=== PATIENT | female | born 1970 | race African-American/Black ===

== ENCOUNTER 2023-03-16 13:27 | Emergency (ER) | payer OTHER, SELFPAY ==
[2023-03-16 13:42] VITALS: BP 129/84; PULSE 80; RESP 18; TEMP 37.2; O2SAT 100
--- NOTE | 2023-03-16 14:32 | ED.EXTPRO ---
HPI - Extremity Problem General Chief complaint: Extremity Injury, Lower Stated complaint: problem with toes left foot Time Seen by Provider: 03/16/23 14:23 Source: patient and RN notes reviewed Mode of arrival: ambulatory Limitations: no limitations History of Present Illness HPI Narrative: Patient presents today complaining of left foot and toe pain x3 years. States now her toes are stiff and the pain is extending proximally into her foot. States the pain is constant and started after she had COVID. She has been to a nursing secretary and physical therapist and states they were not helpful. She has been taking ibuprofen without much relief. Currently rates her pain 06/02. States she is unable to wear shoes due to pain. Related Data Home Medications Medication Instructions Recorded Confirmed amlodipine 10 mg tablet mg 03/16/23 atorvastatin 40 mg tablet mg 03/16/23 dulaglutide 3 mg/0.5 mL mg subcut 03/16/23 subcutaneous pen injector (Trulicity) insulin glargine 100 unit/mL (3 unit subcut 03/16/23 mL) subcutaneous pen (Basaglar KwikPen U-100 Insulin) irbesartan 150 tablet 03/16/23 mg-hydrochlorothiazide 12.5 mg tablet Allergies Allergy/AdvReac Type Severity Reaction Status Date / Time No Known Allergies Allergy Verified 03/16/23 13:45 Review of Systems Review of Systems: CONSTITUTIONAL: Denies body aches, fever, chills, or sweats. EYES: Denies visual changes, redness, or discharge. ENT: Denies rhinorrhea, congestion, sore throat, or otalgia. CARDIOVASCULAR: Denies chest pain, palpitations, or edema. RESPIRATORY: Denies cough or dyspnea. GASTROINTESTINAL: Denies abdominal pain, nausea, vomiting, or diarrhea. GENITOURINARY: Denies dysuria or hematuria. SKIN: Denies rash, itching, or wounds. MUSCULOSKELETAL: Denies back pain, joint pain, or myalgia.+ left foot pain NEUROLOGIC: Denies headache, numbness, tingling, or weakness. PSYCH: Denies depression or anxiety. COUNT INCLUDES THE [facility] Past Medical History Medical History (Updated 03/16/23 @ 14:36 by Kenna Coats, ONCOLOGY COORDINATOR, ) Diabetes Hypertension Comments At time of signature, I have reviewed and agree with nursing past medical, surgical, social and family history unless otherwise noted. Please see nursing chart for further information. There is no relevant family history pertinent to the presenting complaint Exam Narrative: GENERAL: Well-appearing, well-nourished, and in no acute distress. HEAD: Normocephalic, atraumatic. EYES: EOMI. No redness or drainage. Conjunctivae normal. ENT: Mucous membranes pink and moist. NECK: Normal AROM. CHEST: No respiratory distress. EXTREMITIES: Left foot: Tenderness to the toes. Patient does have decreased range of motion to the toes with flexion and extension. No edema noted to the foot or toes. Distal sensation intact. Capillary refill normal. Pedal pulse normal. Color normal. SKIN: Warm, dry, no rash. Capillary refill normal. Normal skin turgor. NEURO: No focal deficits. Alert and oriented x3. Gait steady. PSYCH: Normal affect. No signs of depression or anxiety. Course Course Level of Care: Express Care Visit Vital Signs Vital signs: Vital Signs Temperature 98.9 F 03/16/23 13:42 Pulse Rate 80 03/16/23 13:42 Respiratory Rate 18 03/16/23 13:42 Blood Pressure 129/84 03/16/23 13:42 Pulse Oximetry 100 03/16/23 13:42 Oxygen Delivery Room Air 03/16/23 13:42 Temperature 98.9 F 03/16/23 13:42 Pulse Rate 80 03/16/23 13:42 Respiratory Rate 18 03/16/23 13:42 Blood Pressure 129/84 03/16/23 13:42 Pulse Oximetry 100 03/16/23 13:42 Oxygen Delivery Room Air 03/16/23 13:42 Reviewed. Pt has been instructed to follow up with her PCP regarding her elevated blood pressure today. MDM - Extremity (Nontraumatic) MDM Narrative Medical decision making narrative: Unclear etiology of patient's symptoms. Offered prescription for diclofenac. Patient acc
== END 2023-03-16 14:40 | disposition home or self-care (01) ==
PROVIDERS: Emergency Provider Nurse Practitioner
DX: M79.672 Pain in left foot (principal); E11.9 Type 2 diabetes mellitus without complications; I10 Essential (primary) hypertension
CPT/HCPCS: 99203; G0463

== ENCOUNTER 2023-03-22 16:28 | Emergency (ER) | payer OTHER, SELFPAY ==
[2023-03-22 16:31] VITALS: BP 141/74; PULSE 99; RESP 18; TEMP 36.6; O2SAT 100
--- NOTE | 2023-03-22 17:33 | ED.GENADULT ---
HPI - General Adult General Chief complaint: Unspecified Stated complaint: toes swollen Time Seen by Provider: 03/22/23 17:04 Source: patient Mode of arrival: ambulatory Limitations: no limitations History of Present Illness HPI narrative: This is a 52-year-old female with PMH of HTN, insulin-dependent diabetes who presents to the ED with chief complaint of bilateral lower extremity pain ongoing for 2 years and worse in the past week. Patient states that the pain is a burning/tingling/aching. States the pain is worst in the toes. It is worse at nighttime. Nothing seems to make it better. It is intermittent in nature. Occasionally radiates into the ankles and lower calves. Triage note mentions swelling but she denies this to me. Denies redness, lesions, skin breaks. Denies abdominal pain, nausea, vomiting. Patient states that she was recently referred to a diabetic doctor for insulin management. States her last A1c was around 11-12. She has not talked to her primary about this problem yet. Related Data Home Medications Medication Instructions Recorded Confirmed amlodipine 10 mg tablet mg 03/16/23 atorvastatin 40 mg tablet mg 03/16/23 dulaglutide 3 mg/0.5 mL mg subcut 03/16/23 subcutaneous pen injector (Trulicity) insulin glargine 100 unit/mL (3 unit subcut 03/16/23 mL) subcutaneous pen (Basaglar KwikPen U-100 Insulin) irbesartan 150 tablet 03/16/23 mg-hydrochlorothiazide 12.5 mg tablet Allergies Allergy/AdvReac Type Severity Reaction Status Date / Time No Known Allergies Allergy Verified 03/16/23 13:45 [facility] Past Medical History Medical History (Updated 03/22/23 @ 17:39 by Nj Pollack PA-C) Diabetes Hypertension Exam Narrative: GENERAL: Well-appearing, well-nourished, and in no acute distress. HEAD: Normocephalic, atraumatic. EYES: PERRLA and EOMI. ENT: Nares clear, no rhinorrhea or epistaxis. Mucous membranes moist. Oropharynx without tonsillar hypertrophy exudate or other lesions. NECK: Supple. No adenopathy or masses. CHEST: No respiratory distress. Clear to auscultation. No wheezes rales or rhonchi HEART: Regular rate and rhythm. No murmur heard. Normal peripheral pulses. ABDOMEN: Soft, nontender, nondistended, normal active bowel sounds. MSK: Mild tenderness to the toes bilaterally. Normal range of motion. No swelling. No edema. Full sensation throughout the bilateral feet. Subjective tingling reported with palpation. Full strength throughout the feet bilaterally. No calf edema or tenderness. SKIN: Warm, dry, no rash. No skin breaks or lesions. No drainage. NEURO: Alert and oriented x3. No focal deficits. PSYCH: Normal mood and affect. Course Vital Signs Vital signs: Vital Signs Temperature 97.8 F 03/22/23 16:31 Pulse Rate 99 03/22/23 16:31 Respiratory Rate 18 03/22/23 16:31 Blood Pressure 141/74 H 03/22/23 16:31 Pulse Oximetry 100 03/22/23 16:31 Oxygen Delivery Room Air 03/22/23 16:31 Temperature 97.8 F 03/22/23 16:31 Pulse Rate 86 03/22/23 18:15 Respiratory Rate 17 03/22/23 18:15 Blood Pressure 139/84 03/22/23 18:15 Pulse Oximetry 99 03/22/23 18:15 Oxygen Delivery Room Air 03/22/23 16:31 Medical Decision Making MDM Narrative Medical decision making narrative: This is a 52-year-old female who presents to the ED with chief complaint of bilateral lower extremity pain and tingling for the past 2 years. Vitals are normal. Exam is benign. Her symptoms are consistent with peripheral neuropathy due to uncontrolled diabetes. She tells me that her last A1c was in the 11-12 range. She has been seen by the diabetic doctor and is getting this under control with insulin. We discussed that this problem will not get better until her sugars get better. We also discussed that she would likely need gabapentin prescription from her PCP or her diabetes doctor. Prescribing a short course of [place] in the short-t
[2023-03-22] MEDS: HYDROcodone/acetaminophen (*CRX) 7.5-325 MG TABLET 1 TAB PO (17:56)
[2023-03-22 18:15] VITALS: BP 139/84; PULSE 86; RESP 17; O2SAT 99
== END 2023-03-22 18:17 | disposition home or self-care (01) ==
PROVIDERS: Emergency Provider Physician Assistant
DX: E11.42 Type 2 diabetes mellitus with diabetic polyneuropathy (principal); I10 Essential (primary) hypertension; Z79.4 Long term (current) use of insulin
CPT/HCPCS: 99283; A9270

== ENCOUNTER 2023-04-19 23:46 | Emergency (ER) | payer OTHER, SELFPAY ==
[2023-04-19 23:55] VITALS: BP 144/101; PULSE 93; RESP 16; TEMP 36.4; O2SAT 100
== END 2023-04-20 03:00 | disposition left against medical advice (07) ==
DX: R22.42 Localized swelling, mass and lump, left lower limb (principal)
CPT/HCPCS: 99199

== ENCOUNTER 2023-04-22 12:58 | Emergency (ER) | payer OTHER, SELFPAY ==
[2023-04-22 13:23] VITALS: BP 132/82; PULSE 79; RESP 16; TEMP 36.9; O2SAT 99
[2023-04-22] MEDS: HYDROcodone/acetaminophen (*CRX) 5-325 MG TABLET 1 TAB PO (14:55)
--- NOTE | 2023-04-22 15:15 | ED.GENADULT ---
HPI - General Adult General Chief complaint: Extremity Problem,Nontraumatic Stated complaint: ARM PAIN, NEUROPATHY PAIN Time Seen by Provider: 04/22/23 14:01 History of Present Illness HPI narrative: Patient is a 53-year-old female who presents ER reporting pain in her hands and feet. Reports she has had this issue for the last 3 years but is worsened over the last several months. Her hemoglobin A1c was 14 but has trended down to 9. She reports she has been on gabapentin and pregabalin. She reports she was never given a diagnosis but some I recently told her that she had diabetic neuropathy which seems consistent. She has not seen a neurologist previously. She was recently referred to an rn ccu. She does not track her blood sugars daily. She reports that nothing controls her pain with exception of Tylenol with hydrocodone that was recently prescribed to her. She has been trying to make it last but is now down to her last half pill. She would like a refill and a referral to a specialist. Related Data Home Medications Medication Instructions Recorded Confirmed amlodipine 10 mg tablet mg 03/16/23 atorvastatin 40 mg tablet mg 03/16/23 dulaglutide 3 mg/0.5 mL mg subcut 03/16/23 subcutaneous pen injector (Trulicity) insulin glargine 100 unit/mL (3 unit subcut 03/16/23 mL) subcutaneous pen (Basaglar KwikPen U-100 Insulin) irbesartan 150 tablet 03/16/23 mg-hydrochlorothiazide 12.5 mg tablet Allergies Allergy/AdvReac Type Severity Reaction Status Date / Time No Known Allergies Allergy Verified 04/22/23 13:49 Review of Systems Review of Systems: All systems reviewed & are unremarkable except as noted in HPI and below Constitutional: Constitutional: Denies chills, Denies fatigue and Denies fever(s) Musculoskeletal: Musculoskeletal: Denies myalgias, Denies arthralgias and Denies joint swelling Integumentary/Breasts: Skin/Breast: Denies erythema and Denies rash Neurologic: Denies focal weakness and Reports numbness PMFSH Past Medical History Medical History (Updated 04/22/23 @ 15:20 by Sha Gilmore MD) Diabetes Hypertension Surgical History Surgical History (Updated 04/22/23 @ 15:17 by Sha Gilmore MD) No pertinent past surgical history Exam Narrative: GENERAL: Well-appearing, well-nourished, and in no acute distress. HEAD: Normocephalic, atraumatic. CHEST: Clear to auscultation. No respiratory distress. HEART: Regular rate and rhythm. Normal peripheral pulses. EXTREMITIES: Normal range of motion. No edema. SKIN: Warm, dry, no rash. NEURO: Alert and oriented x3. Gross sensation intact in the hands and feet but patient reports increased tingling and occasional pains. Reports stocking glove distribution. PSYCH: Normal mood and affect. Course Course Emergency Course: Symptoms seem consistent with neuropathy. Will give small supply of [place] and also give phone number of neurology. Recommend she needs to continue to manage her symptoms through her PCP. Patient verbalized understanding. Vital Signs Vital signs: Vital Signs Temperature 98.5 F 04/22/23 13:23 Pulse Rate 79 04/22/23 13:23 Respiratory Rate 16 04/22/23 13:23 Blood Pressure 132/82 04/22/23 13:23 Pulse Oximetry 99 04/22/23 13:23 Temperature 98.5 F 04/22/23 13:23 Pulse Rate 79 04/22/23 13:23 Respiratory Rate 16 04/22/23 13:23 Blood Pressure 132/82 04/22/23 13:23 Pulse Oximetry 99 04/22/23 13:23 Medical Decision Making Vital Signs Vital Signs: Vital Signs Temperature 98.5 F 04/22/23 13:23 Pulse Rate 79 04/22/23 13:23 Respiratory Rate 16 04/22/23 13:23 Blood Pressure 132/82 04/22/23 13:23 Pulse Oximetry 99 04/22/23 13:23 Temperature 98.5 F 04/22/23 13:23 Pulse Rate 79 04/22/23 13:23 Respiratory Rate 16 04/22/23 13:23 Blood Pressure 132/82 04/22/23 13:23 Pulse Oximetry 99 04/22/23 13:23 Disch
[2023-04-22 15:30] VITALS: BP 144/93; PULSE 80; RESP 18; O2SAT 98
== END 2023-04-22 15:35 | disposition home or self-care (01) ==
PROVIDERS: Emergency Provider Emergency Medicine
DX: E11.40 Type 2 diabetes mellitus with diabetic neuropathy, unspecified (principal); I10 Essential (primary) hypertension; Z79.4 Long term (current) use of insulin
CPT/HCPCS: 99283; A9270

== ENCOUNTER 2023-10-03 08:44 | Outpatient (CLI) | payer OTHER, SELFPAY ==
[2023-10-03 09:33] LABS: CRP < 0.5 mg/dL (<1.0)
[2023-10-03 09:43] LABS: Erythrocyte Sedimentation Rate 24 mm/hr (0-20)
[2023-10-03 10:11] LABS: HIV 1/2 Ab P24 Ag Result Negative (Negative)
[2023-10-03 11:08] LABS: Hepatitis B Surface Anti Res Negative
[2023-10-06 21:32] LABS: Lyme Disease Ab (IgM), Blot Negative (Negative); Lyme Disease Ab(IgG), Blot Negative (Negative)
[2023-10-07 18:02] LABS: Proteinase 3 PR3 Antibodies <1.0 AI (<1.0)
[2023-10-08 02:32] LABS: SS-A <1.0; SS-B <1.0
[2023-10-08 03:32] LABS: SM Antibody <1.0; SM/RNP Antibody <1.0; Scleroderma 70 Antibody <1.0
[2023-10-08 12:24] LABS: Angiotensin Converting Enzyme 25 U/L (9-67)
[2023-10-09 16:51] LABS: Cryoglobulin, QL Negative (Negative)
== END 2023-10-03 08:45 | disposition home or self-care (01) ==
DX: E11.40 Type 2 diabetes mellitus with diabetic neuropathy, unspecified (principal)
CPT/HCPCS: 36415; 82164; 82595; 85652; 86036; 86038; 86140; 86235; 86617; 86703; 86706; G0432

== ENCOUNTER 2024-10-05 18:08 | Emergency (ER) | payer OTHER, SELFPAY ==
[2024-10-05 18:14] VITALS: BP 154/80; PULSE 92; RESP 18; TEMP 36.7; O2SAT 98
--- NOTE | 2024-10-05 20:07 | ED_ITS ---
HPI - Extremity Problem General Chief complaint: Extremity Problem,Nontraumatic <Nilda Olivares MD - Last Filed: 10/07/24 00:31> Stated complaint: bilateral foot cramping <Nilda Olivares MD - Last Filed: 10/07/24 00:31> Time Seen by Provider: 10/05/24 19:49 <Nilda Olivares MD - Last Filed: 10/07/24 00:31> Source: patient <Nilda Olivares MD - Last Filed: 10/07/24 00:31> Mode of arrival: ambulatory <Nilda Olivares MD - Last Filed: 10/07/24 00:31> Limitations: no limitations <Nilda Olivares MD - Last Filed: 10/07/24 00:31> History of Present Illness HPI Narrative: Patient presents with bilateral foot cramping and subjective swelling. She describes that they feel numb and tingling. This begins at the arch pain radiates distally. Her primary care physician told her that she had neuropathy prescribed her duloxetine over a year ago but she states that it is not helping. Patient states it feels like a charley horse. She states this pain happens all day and all night, flat she wakes up and when she is trying to sleep. It is not particularly worse with the 1st step of the morning or with user standing on them throughout the day. She does have a history of diabetes mellitus. < Nilda Olivares MD - Last Filed: 10/07/24 00:31> Related Data Home medications: Home Medications ?Medication ?Instructions ?Recorded ?Confirmed ?Last Taken ?Type amlodipine 10 mg tablet mg 03/16/23 Unknown History atorvastatin 40 mg tablet mg 03/16/23 Unknown History dulaglutide 3 mg/0.5 mL mg subcut 03/16/23 Unknown History subcutaneous pen injector (Trulicity) insulin glargine 100 unit/mL (3 unit subcut 03/16/23 Unknown History mL) subcutaneous pen (Basaglar KwikPen U-100 Insulin) irbesartan 150 tablet 03/16/23 Unknown History mg-hydrochlorothiazide 12.5 mg tablet <Nilda Olivares MD - Last Filed: 10/07/24 00:31> Allergies/Adverse reactions: Allergies Allergy/AdvReac Type Severity Reaction Status Date / Time No Known Allergies Allergy Verified 10/05/24 18:17 <Nilda Olivares MD - Last Filed: 10/07/24 00:31> [facility] Past Medical History Medical History: Medical History Hypertension Diabetes <Nilda Olivares MD - Last Filed: 10/07/24 00:31> Surgical History Surgical History: Surgical History (Updated 04/22/23 @ 15:17 by Sha Gilmore MD) No pertinent past surgical history <Nilda Olivares MD - Last Filed: 10/07/24 00:31> Exam 2 Narrative: GENERAL: Well-appearing, well-nourished, and in no acute distress. HEAD: Normocephalic, atraumatic. EYES: Non injected, non icteric ENT: Nares clear, no rhinorrhea or epistaxis. NECK: Supple. CHEST: Speaking in full sentences. No respiratory distress. HEART: Regular rate and rhythm. . ABDOMEN: Soft, nondistended. EXTREMITIES: Normal range of motion in bilateral feet. No lower extremity edema. Mild tenderness to palpation of bilateral plantar aspect of the particularly at the arch and distally. Not erythematous or edematous. Palpable DP pulses bilaterally. Feet are warm and well perfused. Appropriate capillary refill in bilateral great toes. SKIN: Warm, dry, no rash. Skin around feet and toes appears intact without ulceration or wounds NEURO: No focal deficits. Alert and oriented x3. PSYCH: Normal mood and affect. <Nilda Olivares MD - Last Filed: 10/07/24 00:31> Course Course Emergency Course: I was notified by nursing staff patient after Dr. Olivares's shift was over that the patient would like a prescription for NSAIDs for pain control. Chart reviewed. Ibuprofen sent to pharmacy. <Archana Huston PA-C - Last Filed: 10/05/24 22:52> Vital Signs Vital signs: Vital Signs Temperature 98.0 F 10/05/24 18:14 Pulse Rate 92 10/05/24 18:14 Respiratory Rate 18 10/05/24 18:14 Blood Pressure 154/80 H 10/05/24 18:14 Pulse Oximetry 98 10/05/24 18:14 Oxygen Delivery Room Air 10/05/24 18:14 Temperature 98.0 F 10/05/24 18:14 Pulse Rate 92 10/05/24 18:14 Respiratory Rate 18 10/05/24 18:14 Blood Pressure 154/80 H 10/05/24 18:14 Pulse Oximetry 98 10/05/24 18:14 Oxygen Delivery Room Air 10/05/24 18:14 <Nilda Olivares MD - Last Filed: 10/07/24 00:31> Vital Signs Temperature 98.0 F 10/05/24 18:14 Pulse Rate 92 10/05/24 18:14 Respiratory Rate 18 10/05/24 18:14 Blood Pressure 154/80 H 10/05/24 18:14 Pulse Oximetry 98 10/05/24 18:14 Oxygen Delivery Room Air 10/05/24 18:14 Temperature 98.0 F 10/05/24 18:14 Pulse Rate 92 10/05/24 18:14 Respiratory Rate 18 10/05/24 18:14 Blood Pressure 154/80 H 10/05/24 18:14 Pulse Oximetry 98 10/05/24 18:14 Oxygen Delivery Room Air 10/05/24 18:14 <Archana Huston PA-C - Last Filed: 10/05/24 22:52> MDM - Extremity (Nontraumatic) MDM Narrative Medical decision making narrative: Patient with a history of diabetes mellitus presents with complaint of bilateral foot cramping as well as paresthesias. They are subjectively swollen and she describes numbness and tingling at the arches and radiating distally. In the emergency department she is afebrile vital signs notable for hypertension. Physical exam is reassuring, limbs are neurovascularly intact. Patient declines acetaminophen per the nurse and she states that it makes her feel woozy and she does not tolerate it. Will hold on an analgesic until labs return. She has hyperglycemia without anion gap or acidosis. Pseudo hyponatremia as the sodium corrects to 138-140mEq/L in the setting of hyperglycemia. I discussed patient's presumed diagnosis as well as her workup and the importance of good diabetic/glycemic control, routine foot exams and general foot care, and the prescription gabapentin. Received first dose in the ED and rest of course prescribed. Patient has already received ketorolac. Patient states when she usually comes to the emergency department she is given something stronger so that she can get some sleep given that she has been unable to get rest recently. We discussed that there is no role for opiate/narcotic medication for this type of pain given the differences in various pain receptors. I did inform patient that I would not be prescribing controlled substances but given 1 time dose of Valium after I confirmed that patient was not driving but rather had transportation, someone drove her here. Advised f/u with PCP. <Nilda Olivares MD - Last Filed: 10/07/24 00:31> Differential Diagnosis Differential diagnosis: Likely cellulitis, superficial thrombophlebitis, deep vein thrombosis of lower extremity and other (Diabetic neuropathy/peripheral neuropathy, thrombocytopenia, altered CPK, electrolyte abnormalities, symptomatic anemia, plantar fascia) <Nilda Olivares MD - Last Filed: 10/07/24 00:31> Lab Data Attestation: I reviewed the patient's lab results. <Nilda Olivares MD - Last Filed: 10/07/24 00:31> Result diagrams: 10/05/24 20:27 10/05/24 20:27 <Nilda Olivares MD - Last Filed: 10/07/24 00:31> Labs: Lab Results 10/05/24 Range/Units 20:27 WBC 5.6 (4.5-10.0) K/mm3 RBC 4.41 (4.2-5.4) M/mm3 Hgb 12.4 (12.0-15.0) g/dL Hct 39.4 (37.0-47.0) % MCV 89.3 (80-100) fl MCH 28.1 (26-34) pg MCHC 31.5 L (32-36) g/dl RDW 13.0 (11.5-14.5) % Plt Count 236 (150-375) k/mm3 MPV 11.8 H (7.4-10.4) fl Immature Gran % (Auto) 0.2 (0-0.5) % Neut % (Auto) 63.0 (45.5-73.1) % Lymph % (Auto) 26.9 (18.3-44.2) % Wetzel % (Auto) 5.9 (2.6-8.5) % Eos % (Auto) 3.6 (0-4.4) % Baso % (Auto) 0.4 (0.2-1.2) % Lymph # (Auto) 1.51 (0.9-3.2) K/mm3 Wetzel # (Auto) 0.3 (0.1-0.6) K/mm3 Eos # (Auto) 0.2 (0-0.3) K/mm3 Baso # (Auto) 0.0 (0.0-0.1) K/mm3 Abs Immat Gran (auto) 0.01 (0.00-0.031) K/mm3 Absolute Neuts (auto) 3.6 (1.3-6.7) K/mm3 Absolute Nucleated RBC 0.000 (0.0-0.012) K/mm3 Nucleated RBC % 0.0 (0.0-0.2) % PT 13.5 (11.1-14.7) Seconds INR 1.0 APTT 27.7 (22.3-36.8) Seconds D-Dimer < 0.27 (<0.48) ug/mL Sodium 135 L (137-145) mmol/L Potassium 4.2 (3.4-5.0) mmol/L Chloride 102 (98-107) mmol/L Carbon Dioxide 29 (22-30) mmol/L Anion Gap 4 (4-12) mmol/L BUN 20 H (7-17) mg/dL Creatinine 0.81 (0.7-1.0) mg/dL Estim Creat Clear Calc 84 ml/min Estimated GFR > 60 (59 - ) Glucose 303 H (65-110) mg/dL Calcium 9.2 (8.4-10.2) mg/dL Magnesium 1.7 (1.6-2.3) mg/dL Total Bilirubin 0.4 (0.2-1.3) mg/dL AST 26 (14-36) U/L ALT 39 H (6-35) U/L Alkaline Phosphatase 78 (38-126) U/L Total Creatine Kinase 182 H (30-135) U/L NT-Pro-B Natriuret Pep 63 (19.9-100) pg/mL Total Protein 7.0 (6.3-8.2) g/dL Albumin 4.0 (3.5-5.1) g/dL <Nilda Olivares MD - Last Filed: 10/07/24 00:31> Lab Results 10/05/24 Range/Units 20:27 WBC 5.6 (4.5-10.0) K/mm3 RBC 4.41 (4.2-5.4) M/mm3 Hgb 12.4 (12.0-15.0) g/dL Hct 39.4 (37.0-47.0) % MCV 89.3 (80-100) fl MCH 28.1 (26-34) pg MCHC 31.5 L (32-36) g/dl RDW 13.0 (11.5-14.5) % Plt Count 236 (150-375) k/mm3 MPV 11.8 H (7.4-10.4) fl Immature Gran % (Auto) 0.2 (0-0.5) % Neut % (Auto) 63.0 (45.5-73.1) % Lymph % (Auto) 26.9 (18.3-44.2) % Wetzel % (Auto) 5.9 (2.6-8.5) % Eos % (Auto) 3.6 (0-4.4) % Baso % (Auto) 0.4 (0.2-1.2) % Lymph # (Auto) 1.51 (0.9-3.2) K/mm3 Wetzel # (Auto) 0.3 (0.1-0.6) K/mm3 Eos # (Auto) 0.2 (0-0.3) K/mm3 Baso # (Auto) 0.0 (0.0-0.1) K/mm3 Abs Immat Gran (auto) 0.01 (0.00-0.031) K/mm3 Absolute Neuts (auto) 3.6 (1.3-6.7) K/mm3 Absolute Nucleated RBC 0.000 (0.0-0.012) K/mm3 Nucleated RBC % 0.0 (0.0-0.2) % PT 13.5 (11.1-14.7) Seconds INR 1.0 APTT 27.7 (22.3-36.8) Seconds D-Dimer < 0.27 (<0.48) ug/mL Sodium 135 L (137-145) mmol/L Potassium 4.2 (3.4-5.0) mmol/L Chloride 102 (98-107) mmol/L Carbon Dioxide 29 (22-30) mmol/L Anion Gap 4 (4-12) mmol/L BUN 20 H (7-17) mg/dL Creatinine 0.81 (0.7-1.0) mg/dL Estim Creat Clear Calc 84 ml/min Estimated GFR > 60 (59 - ) Glucose 303 H (65-110) mg/dL Calcium 9.2 (8.4-10.2) mg/dL Magnesium 1.7 (1.6-2.3) mg/dL Total Bilirubin 0.4 (0.2-1.3) mg/dL AST 26 (14-36) U/L ALT 39 H (6-35) U/L Alkaline Phosphatase 78 (38-126) U/L Total Creatine Kinase 182 H (30-135) U/L NT-Pro-B Natriuret Pep 63 (19.9-100) pg/mL Total Protein 7.0 (6.3-8.2) g/dL Albumin 4.0 (3.5-5.1) g/dL <Archana Huston PA-C - Last Filed: 10/05/24 22:52> Discharge Plan Discharge Clinical Impression: Hyperglycemia due to diabetes mellitus, Pseudohyponatremia, Diabetic neuropathy <Nilda Olivares MD - Last Filed: 10/07/24 00:31> Patient Disposition: Home, Self-Care <Nilda Olivares MD - Last Filed: 10/07/24 00:31> Condition: Stable <Nilda Olivares MD - Last Filed: 10/07/24 00:31> Instructions: Antibiotic Form, Diabetic Neuropathy (ED), Peripheral Neuropathy (ED), Diabetic Hyperglycemia (ED), Mediterranean Diet (DC), Diabetes and Exercise (ED) <Nilda Olivares MD - Last Filed: 10/07/24 00:31> Additional Instructions: It does seem that your neuropathy is likely related to your diabetes. Good control of your diabetes can help with these symptoms so continue taking your diabetic medications as they are prescribed. You can also start using the gabapentin. You received your 1st dose in the emergency department today (300mg), can take it in the morning and evening on day 2 (600mg total), and subsequently three times a day on day 3 and beyond. Given the numbness and tingling you experience, you are also more prone to wounds and infections so regular exams of your feet and taking good care of them is important. They did not show signs of infection or ulcers today. It is important that you follow-up with your primary care provider for continued management of your diabetes, and neuropathy. Return to the emergency department with any new or worsening symptoms. <Nilda Olivares MD - Last Filed: 10/07/24 00:31> Patient Language: Kyrgyz <Nilda Olivares MD - Last Filed: 10/07/24 00:31> Prescriptions: New gabapentin 300 mg capsule See Rx Instructions .ROUTE .COMPLEX Qty: 30 0RF Rx Instructions: 300 mg orally; received first dose in ED 10/05. Take 600mg total (300mg BID) on day 2 (10/06), then 900mg total (300mg TID) on subsequent days ibuprofen 600 mg tablet 600 mg PO Q6H PRN (Reason: pain) Qty: 14 0RF No Action atorvastatin 40 mg tablet irbesartan-hydrochlorothiazide 150-12.5 mg tablet amlodipine 10 mg tablet insulin glargine [Basaglar KwikPen U-100 Insulin] 100 unit/mL (3 mL) insulin pen SUBCUT Trulicity 3 mg/0.5 mL pen injector SUBCUT diclofenac potassium 50 mg tablet 50 mg PO TID PRN (Reason: pain) Qty: 20 0RF hydrocodone-acetaminophen 5-325 mg tablet 1 tablet PO Q8H PRN (Reason: pain) Qty: 14 0RF hydrocodone-acetaminophen 5-325 mg tablet 1 tablet PO Q6H PRN (Reason: pain) Qty: 14 0RF <Nilda Olivares MD - Last Filed: 10/07/24 00:31> Follow-up/Referrals: Leah Clement [Other] [facility] [Primary Care Provider] - <Nilda Olivares MD - Last Filed: 10/07/24 00:31> Stand Alone Forms: Work/School Release IP <Nilda Olivares MD - Last Filed: 10/07/24 00:31> Time of Disposition: 21:45 <Nilda Olivares MD - Last Filed: 10/07/24 00:31> 21:45 <Archana Huston PA-C - Last Filed: 10/05/24 22:52>
[2024-10-05 20:48] LABS: Basophils Percent Auto 0.4 % (0.2-1.2); Eosinophils Absolute Auto 0.2 K/mm3 (0-0.3); Eosinophils Percent Auto 3.6 % (0-4.4); Hematocrit 39.4 % (37.0-47.0); Hemoglobin 12.4 g/dL (12.0-15.0); Immature Granulocyte Absolute 0.01 K/mm3 (0.00-0.031); Immature Granulocyte Percent A 0.2 % (0-0.5); Lymphocytes Absolute Auto 1.51 K/mm3 (0.9-3.2); Lymphocytes Percent Auto 26.9 % (18.3-44.2); Mean Corpuscular HGB Conc 31.5 g/dl (32-36); Mean Corpuscular Hemoglobin 28.1 pg (26-34); Mean Corpuscular Volume 89.3 fl (80-100); Mean Platelet Volume 11.8 fl (7.4-10.4); Monocytes Absolute Auto 0.3 K/mm3 (0.1-0.6); Monocytes Percent Auto 5.9 % (2.6-8.5); Neutrophils Absolute Auto 3.6 K/mm3 (1.3-6.7); Platelet Count Result 236 k/mm3 (150-375); Red Blood Count 4.41 M/mm3 (4.2-5.4); White Blood Count 5.6 K/mm3 (4.5-10.0)
[2024-10-05 21:07] LABS: Alanine Aminotransferase 39 U/L (6-35); Alkaline Phosphatase 78 U/L (38-126); Anion Gap 4 mmol/L (4-12); Aspartate Amino Transferase 26 U/L (14-36); Bilirubin,Total 0.4 mg/dL (0.2-1.3); Blood Urea Nitrogen 20 mg/dL (7-17); Calcium 9.2 mg/dL (8.4-10.2); Carbon Dioxide 29 mmol/L (22-30); Chloride 102 mmol/L (98-107); Creatine Kinase 182 U/L (30-135); Estimated CRCL calculation 84 ml/min; Estimated Glomerular Filt Rate > 60; Glucose 303 mg/dL (65-110); Magnesium 1.7 mg/dL (1.6-2.3); Potassium 4.2 mmol/L (3.4-5.0); Sodium 135 mmol/L (137-145)
[2024-10-05 21:15] LABS: NT Pro B Type Natriuretic Pept 63 pg/mL (19.9-100)
[2024-10-05 21:27] LABS: Prothrombin Time 13.5 Seconds (11.1-14.7)
[2024-10-05 21:28] LABS: Partial Thromboplastin Time 27.7 Seconds (22.3-36.8)
[2024-10-05 21:29] LABS: D Dimer < 0.27 ug/mL (<0.48)
[2024-10-05] MEDS: KETOROLAC 30 MG/ML VIAL (*BKC) 15 MG IM (21:40)
[2024-10-05] MEDS: GABAPENTIN 300 MG CAPSULE PO (21:46)
[2024-10-05] MEDS: diazePAM (*CRX) 5 MG TABLET PO (22:15)
== END 2024-10-05 22:22 | disposition home or self-care (01) ==
PROVIDERS: Emergency Provider Student in an Organized Health Care Education/Training Program
DX: E11.65 Type 2 diabetes mellitus with hyperglycemia (principal); E11.40 Type 2 diabetes mellitus with diabetic neuropathy, unspecified; Z79.4 Long term (current) use of insulin; I10 Essential (primary) hypertension
CPT/HCPCS: 36415; 80053; 82550; 83735; 83880; 85025; 85380; 85610; 85730; 96372; 99283; A9270; J1885

== ENCOUNTER 2024-10-08 15:24 | Emergency (ER) | payer OTHER, SELFPAY ==
--- NOTE | ~2024-10-08 | XR_ITS ---
XR lumbar spine min 4V 10/08/2024 17:08 Indication: Low back pain after fall Procedure: 5 views lumbar spine Comparison: No prior studies for comparison. Findings: There is facet hypertrophy at L3-4, L4-5 and L5-S1 with grade 1 spondylolisthesis at L4-5. No fracture or traumatic malalignment. Pedicles intact. Sacral foramen are symmetric. Impression: 1: Mild-moderate lumbar spondylosis with grade 1 degenerative spondylolisthesis at L4-5. Reviewed, dictated and finalized at location A. ROLLER OPERATOR Impression: 1: Mild-moderate lumbar spondylosis with grade 1 degenerative spondylolisthesis at L4-5.
--- NOTE | ~2024-10-08 | XR_ITS ---
XR knee LT min 4V 10/08/2024 17:08 Indication: Left knee pain after fall Procedure: 4 views left knee Comparison: No prior studies for comparison. Findings: There is anatomic alignment. Mild osteoarthritis. No joint effusion. No acute fracture or t raumatic malalignment. No foreign bodies. Impression: 1: Mild osteoarthritis of the left knee. Reviewed, dictated and finalized at location A. HANDISING SPECIALIST Impression: 1: Mild osteoarthritis of the left knee.
[2024-10-08 15:36] VITALS: BP 144/72; PULSE 90; RESP 20; TEMP 36.6; O2SAT 100
--- NOTE | 2024-10-08 17:29 | ED.FALL ---
HPI - Fall General Chief Complaint: Fall Stated Complaint: fall Time Seen by Provider: 10/08/24 16:17 Source: patient Mode of arrival: ambulatory Limitations: no limitations History of Present Illness HPI Narrative: 54-year-old with a history of hypertension, diabetes, diabetic neuropathy here with the complaints of left knee and low back pain. Patient states that she fell was taking trash out while she was at work. She denies any head or neck injuries. complaint: fall Onset (ago): hour(s) (1) Fall from: standing Place fall occurred: work Loss of consciousness: none Context: tripped/slipped Location of injury - extremities: Left: lower leg Associated symptoms (after fall): denies Related Data Home Medications ?Medication ?Instructions ?Recorded ?Confirmed ?Last Taken ?Type amlodipine 10 mg tablet mg 03/16/23 Unknown History atorvastatin 40 mg tablet mg 03/16/23 Unknown History dulaglutide 3 mg/0.5 mL mg subcut 03/16/23 Unknown History subcutaneous pen injector (Trulicity) insulin glargine 100 unit/mL (3 unit subcut 03/16/23 Unknown History mL) subcutaneous pen (Basaglar KwikPen U-100 Insulin) irbesartan 150 tablet 03/16/23 Unknown History mg-hydrochlorothiazide 12.5 mg tablet Allergies Allergy/AdvReac Type Severity Reaction Status Date / Time No Known Allergies Allergy Verified 10/05/24 18:17 Review of Systems Review of Systems: All systems reviewed & are unremarkable except as noted in HPI and below Constitutional: Constitutional: Reports no additional constitutional complaints Eyes: Eyes: Reports no additional eye complaints ENT: Reports system reviewed and no additional complaints, except as documented Cardiovascular: Cardiovascular: Reports no additional cardiovascular complaints Respiratory: Respiratory: Reports no additional respiratory complaints Gastrointestinal: Gastrointestinal: Reports no additional gastrointestinal complaints Musculoskeletal: Musculoskeletal: Reports as per HPI Neurologic: Reports system reviewed and no additional complaints, except as documented Psychiatric: Psychiatric: Reports no additional psychiatric complaints Endocrine: Endocrine: Reports no additional endocrine complaints PMFSH Past Medical History Medical History Hypertension Diabetes Surgical History Surgical History (Updated 04/22/23 @ 15:17 by Sha Gilmore MD) No pertinent past surgical history Exam Narrative: GENERAL: Well-appearing, well-nourished, and in no acute distress. HEAD: Normocephalic, atraumatic. EYES: PERRLA and EOM NECK: Supple. CHEST: Clear to auscultation. No respiratory distress. HEART: Regular rate and rhythm. No murmur heard. Normal peripheral pulses. ABDOMEN: Soft, nontender, nondistended, normal active bowel sounds. EXTREMITIES: Normal range of motion. No edema. SKIN: Warm, dry, no rash. NEURO: No focal deficits. Alert and oriented x3. PSYCH: Normal mood and affect. Course Course Emergency Course: Notified patient about her x-ray findings recommended her to take pain medication as prescribed, follow with the primary doctor. Vital Signs Vital signs: Vital Signs Temperature 36.6 C 10/08/24 15:36 Pulse Rate 90 10/08/24 15:36 Respiratory Rate 20 10/08/24 15:36 Blood Pressure 144/72 H 10/08/24 15:36 Pulse Oximetry 100 10/08/24 15:36 Oxygen Delivery Room Air 10/08/24 15:36 Temperature 36.6 C 10/08/24 15:36 Pulse Rate 90 10/08/24 15:36 Respiratory Rate 20 10/08/24 15:36 Blood Pressure 144/72 H 10/08/24 15:36 Pulse Oximetry 100 10/08/24 15:36 Oxygen Delivery Room Air 10/08/24 15:36 MDM - Fall Imaging Data Radiologist's impression: ITS Impressions Knee X-Ray 10/08/24 17:10 Impression: 1: Mild osteoarthritis of the left knee. Lumbar Spine X-Ray 10/08/24 17:11 Impression: 1: Mild-moderate lumbar spondylosis with grade 1 degenerative spondylolisthesis at L4-5. Discharge Plan Discharge Clinical Impression: Contusion of knee Qualifiers: Encounter type: initial encounter Laterality: left Qualified Code(s): S80.02XA - Contusion of left knee, initial encounter Lumbar strain Qualifiers: Encounter type: initial encounter Qualified Code(s): S39.012A - Strain of muscle, fascia and tendon of lower back, initial encounter Patient Disposition: Home, Self-Care Condition: Stable Instructions: Contusion in Adults (ED) Patient Language: Malawian Prescriptions: New tramadol 50 mg tablet 50 mg PO Q6H PRN (Reason: pain) Qty: 14 0RF No Action atorvastatin 40 mg tablet irbesartan-hydrochlorothiazide 150-12.5 mg tablet amlodipine 10 mg tablet insulin glargine [Basaglar KwikPen U-100 Insulin] 100 unit/mL (3 mL) insulin pen SUBCUT Trulicity 3 mg/0.5 mL pen injector SUBCUT diclofenac potassium 50 mg tablet 50 mg PO TID PRN (Reason: pain) Qty: 20 0RF hydrocodone-acetaminophen 5-325 mg tablet 1 tablet PO Q8H PRN (Reason: pain) Qty: 14 0RF hydrocodone-acetaminophen 5-325 mg tablet 1 tablet PO Q6H PRN (Reason: pain) Qty: 14 0RF gabapentin 300 mg capsule See Rx Instructions .ROUTE .COMPLEX Qty: 30 0RF Rx Instructions: 300 mg orally; received first dose in ED 10/05. Take 600mg total (300mg BID) on day 2 (10/06), then 900mg total (300mg TID) on subsequent days ibuprofen 600 mg tablet 600 mg PO Q6H PRN (Reason: pain) Qty: 14 0RF Follow-up/Referrals: Ming Kang MD [Physician] - UNKNOWN,DOCTOR [Primary Care Provider] - Stand Alone Forms: Work/School Release IP Time of Disposition: 17:43
== END 2024-10-08 17:56 | disposition home or self-care (01) ==
PROVIDERS: Emergency Provider Family Medicine
DX: S39.012A Strain of muscle, fascia and tendon of lower back, initial encounter (principal); S80.02XA Contusion of left knee, initial encounter; I10 Essential (primary) hypertension; E11.40 Type 2 diabetes mellitus with diabetic neuropathy, unspecified; Z79.4 Long term (current) use of insulin; Z79.85 Long-term (current) use of injectable non-insulin antidiabetic drugs; Z79.899 Other long term (current) drug therapy; M17.12 Unilateral primary osteoarthritis, left knee; M43.16 Spondylolisthesis, lumbar region; M47.816 Spondylosis without myelopathy or radiculopathy, lumbar region; W18.30XA Fall on same level, unspecified, initial encounter
CPT/HCPCS: 72110; 73564; 99284

== ENCOUNTER 2025-03-01 18:49 | Emergency (ER) | payer OTHER, SELFPAY ==
[2025-03-01] VITALS (20 sets, daily range): BP systolic 66–137; BP diastolic 46–79; PULSE 98–127; RESP 14–29; TEMP 36.6; O2SAT 88–100
--- NOTE | ~2025-03-01 | XR_ITS ---
XR chest 1V portable Ordering provider: All Gomez MD History: 54 years Female with . infection . Comparison: None. FINDINGS: MEDIASTINUM: The cardiac silhouette is not enlarged. Congestive jorge. LUNGS: No effusions or pneumothorax. Opacification in the right lung base with prominent markings in the seen suggestive of atelectasis versus pneumonia. OTHER: No free air under the diaphragm. IMPRESSION: Right basilar atelectasis versus pneumonia. Markings in the left lung base which also may indicate atelectasis versus early pneumonia. Reviewed, dictated and finalized at location A.
--- NOTE | ~2025-03-01 | CT_ITS ---
CT abdomen pelvis wo con Ordering provider: All Gomez MD History: 54 years Female with . periumbilical pain . Comparison: None. Technique: CT abdomen and pelvis without IV and without oral contrast. Automated exposure control and iterative reconstruction technique were employed. The dose-length product was 1410.61 mGy-cm. Findings: VISUALIZED LOWER CHEST: Dependent atelectatic changes.. UPPER ABDOMINAL ORGANS: Liver: Hepatomegaly. Gallbladder: Highly suggestive cholelithiasis. Spleen: Normal. Stomach/duodenum: Normal. Pancreas: Normal. Adrenals: Normal. Kidneys: 3 cm cyst is seen in the right kidney lower pole. Left perinephric fat stranding is seen with no definite stones or hydronephrotic changes. PELVIC ORGANS: The bladder is underfilled with thickened wall. Uterus: Enlarged with highly suggestive fibroids. Further evaluation advised. BOWEL AND MESENTERY: Colon: No evidence of diverticulitis. Normal appendix. Small Bowel: Normal. No obstruction. Peritoneum/mesentery: No free air or free fluid. No mesenteric lymphadenopathy. RETROPERITONEUM: Mild atheromatous disease of the abdominal aorta. No retroperitoneal lymphadenopat hy. MUSCULOSKELETAL: Superficial soft tissues: Small fat-containing umbilical hernia. The superficial soft tissues are nor mal. Bones: Age appropriate degenerative changes of the spine. IMPRESSION: 1. Grossly enlarged uterus. Further evaluation advised. 2. Right renal cyst. 3. Left perinephric fat stranding. Evaluation for gastritis advised. 4. Thickened wall of the urinary bladder which may indicate cystitis. Further evaluation advised. 5. Small fat-containing umbilical hernia. 6. Highly suggestive cholelithiasis. Ultrasound evaluation advised. 7. Hepatomegaly. Reviewed, dictated and finalized at location A.
--- NOTE | 2025-03-01 18:56 | ECG_ITS ---
Test Date: 2025-03-01 21:47:11 Measurements Intervals [place] Rate: 100 P: 46 NM: 146 QRS: -12 QRSD: 79 T: 12 QT: 339 QTc: 438 Interpretive Statements SINUS TACHYCARDIA LOW QRS VOLTAGE IN PRECORDIAL LEADS VOLTAGE CRITERIA FOR LVH CANNOT R/O SEPTAL INFARCT, AGE INDETERMINATE BASELINE ARTIFACT- I, II, III, AVR, AVL, AVF ABNORMAL ECG No previous ECG available for comparison Electronically Signed On 03-02-2025 06:30:20 CDT by Kwasi Kenyon D.O.
[2025-03-01] MEDS: SODIUM CHLORIDE 0.9% IV 1,000 ML 999 ML IV CONT ×2 (19:38→21:36)
--- NOTE | 2025-03-01 19:50 | ED_ITS ---
HPI - Abdominal Pain General Chief Complaint: Abdominal Pain Stated Complaint: cold/hot flashes Time Seen by Provider: 03/01/25 18:56 History of Present Illness HPI narrative: Patient is a 54-year-old female who presents emergency department this evening complaining of periumbilical abdominal pain for the past week. Patient states the pain states there and does not radiate. Admits to nausea but denies any vomiting episodes, patient also denies diarrhea or constipation stating that she has been having regular bowel movements. Patient states that she has had some episodes where she gets some hot/cold flashes and has been feeling generally weak. Related Data Home Medications ?Medication ?Instructions ?Recorded ?Confirmed ?Last Taken ?Type amlodipine 10 mg tablet mg 03/16/23 Unknown History atorvastatin 40 mg tablet mg 03/16/23 Unknown History dulaglutide 3 mg/0.5 mL mg subcut 03/16/23 Unknown History subcutaneous pen injector (Trulicity) insulin glargine 100 unit/mL (3 unit subcut 03/16/23 Unknown History mL) subcutaneous pen (Basaglar KwikPen U-100 Insulin) irbesartan 150 tablet 03/16/23 Unknown History mg-hydrochlorothiazide 12.5 mg tablet Allergies Allergy/AdvReac Type Severity Reaction Status Date / Time No Known Allergies Allergy Verified 03/01/25 18:49 Review of Systems 2 Review of Systems: All systems are reviewed and are negative unless stated otherwise in the HPI. [facility] Past Medical History Medical History Hypertension Diabetes Surgical History Surgical History No pertinent past surgical history Exam 2 Narrative: General: Alert, awake, afebrile, in no acute distress. HEENT: PERRL, no rhinorrhea, no post nasal drip, oropharynx clear. Neck: Trachea midline, no JVD, no lymphadenopathy. Cardiovascular: Tachycardic with regular rhythm, no murmurs, rubs or gallops, no peripheral edema. Respiratory: Clear to auscultation bilaterally, no tachypnea, no wheezing, no rhonchi, no rubs, no respiratory distress. Abdomen: Soft, nontender, nondistended, no rebound, no guarding, no peritoneal signs. Musculoskeletal: No joint swelling or deformity, normal muscle tone. Skin: No rashes or petechia, no signs of infection. Psychiatric: Alert and oriented, normal behavior and judgment for situation. Neurological: Alert and oriented to person, place, and time. Follows all commands. No focal deficits, speech is clear and fluent. Course Vital Signs Vital signs: Vital Signs Temperature 97.8 F 03/01/25 18:51 Pulse Rate 127 H 03/01/25 18:51 Respiratory Rate 16 03/01/25 18:51 Blood Pressure 124/58 L 03/01/25 18:51 Pulse Oximetry 95 03/01/25 18:51 Oxygen Delivery Room Air 03/01/25 18:51 Temperature 97.8 F 03/01/25 18:51 Pulse Rate 127 H 03/01/25 18:51 Respiratory Rate 16 03/01/25 18:51 Blood Pressure 124/58 L 03/01/25 18:51 Pulse Oximetry 95 03/01/25 18:51 Oxygen Delivery Room Air 03/01/25 18:51 MDM - Abdominal Pain MDM Narrative Medical decision making narrative: The patient was evaluated by myself in the emergency department. History is obtained from patient who is an independent historian and physical exam was performed. External medical records were reviewed at this time. IV was established and pertinent tests were ordered. Patient was administered 1 L IV fluid bolus with normal saline. EKG was obtained which revealed sinus tachycardia rate of 100 beats per minute, otherwise no evidence of arrhythmia or acute ischemia. EKG was independently interpreted by me and is currently pending official cardiology read. Laboratory results obtained revealing a creatinine of 1.8, mild transaminitis with an AST of 62 and an ALT of 72 otherwise unremarkable. Urinalysis did reveal trace ketones, 2+ blood, 3-5 rbc's greater than 100 white blood cells. Patient was informed of this at bedside and administered 1 g of IV Rocephin at this time for her UTI. Imaging studies obtained included CXR which was independently interpreted by me revealing no acute cardiopulmonary process. Chest x-ray currently pending official radiology read. CT abdomen and pelvis without IV contrast was obtained at this time and independently interpreted by me revealing: IMPRESSION: 1. Grossly enlarged uterus. Further evaluation advised. 2. Right renal cyst. 3. Left perinephric fat stranding. Evaluation for gastritis advised. 4. Thickened wall of the urinary bladder which may indicate cystitis. Further evaluation advised. 5. Small fat-containing umbilical hernia. 6. Highly suggestive cholelithiasis. Ultrasound evaluation advised. 7. Hepatomegaly. Patient was informed of these findings at bedside. Patient does not have any right upper quadrant abdominal pain. She was informed that she will need an outpatient ultrasound for further evaluation of her gallbladder and patient is in agreement. Differential diagnosis considerations include infectious process such as pneumonia/UTI, diverticulitis, appendicitis, acute viral syndrome. Comorbidities impacting this visit include none. I have evaluated and discussed social determinants of health with the patient that could potentially impact subsequent diagnosis and treatment plans. On repeat assessment of the patient, reevaluation revealed that the patient is doing well and is in no acute distress. Patient symptoms have improved since she arrived to our emergency department. Repeat vital signs were all reviewed and noted to be stable. Differential diagnosis and treatment plan were discussed with the patient at bedside. Patient agrees with discussion and after shared medical decision making agrees with discharge. All questions were answered to the patient's satisfaction. Patient will follow up with her PCP in 3-5 days. A script for cephalexin was sent to patient's pharmacy to take as prescribed for her UTI. Patient was provided with strict return precautions and instructed to return to the emergency department if any new or worsening symptoms develop. The patient was discharged in stable condition. Lab Data 03/01/25 19:38 03/01/25 19:38 Labs: Lab Results 03/01/25 03/01/25 Range/Units 19:38 20:20 WBC 8.1 (4.5-10.0) K/mm3 RBC 4.13 L (4.2-5.4) M/mm3 Hgb 11.4 L (12.0-15.0) g/dL Hct 36.3 L (37.0-47.0) % MCV 87.9 (80-100) fl MCH 27.6 (26-34) pg MCHC 31.4 L (32-36) g/dl RDW 13.4 (11.5-14.5) % Plt Count 207 (150-375) k/mm3 MPV 11.3 H (7.4-10.4) fl Immature Gran % (Auto) 0.4 (0-0.5) % Neut % (Auto) 86.5 H (45.5-73.1) % Lymph % (Auto) 4.8 L (18.3-44.2) % Keith % (Auto) 8.2 (2.6-8.5) % Eos % (Auto) 0.0 (0-4.4) % Baso % (Auto) 0.1 L (0.2-1.2) % Lymph # (Auto) 0.39 L (0.9-3.2) K/mm3 Keith # (Auto) 0.7 H (0.1-0.6) K/mm3 Eos # (Auto) 0.0 (0-0.3) K/mm3 Baso # (Auto) 0.0 (0.0-0.1) K/mm3 Abs Immat Gran (auto) 0.03 (0.00-0.031) K/mm3 Absolute Neuts (auto) 7.0 H (1.3-6.7) K/mm3 Absolute Nucleated RBC 0.000 (0.0-0.012) K/mm3 Nucleated RBC % 0.0 (0.0-0.2) % Sodium 134 L (137-145) mmol/L Potassium 3.7 (3.4-5.0) mmol/L Chloride 102 (98-107) mmol/L Carbon Dioxide 21 L (22-30) mmol/L Anion Gap 11 (4-12) mmol/L BUN 37 H D (7-17) mg/dL Creatinine 1.82 H (0.7-1.0) mg/dL Estim Creat Clear Calc 39 ml/min Estimated GFR 29 L (59 - ) Glucose 328 H (65-110) mg/dL Lactic Acid 0.9 (0.7-2.0) mmol/L Calcium 9.1 (8.4-10.2) mg/dL Magnesium 1.8 (1.6-2.3) mg/dL Total Bilirubin 0.9 (0.2-1.3) mg/dL AST 62 H (14-36) U/L ALT 72 H (6-35) U/L Alkaline Phosphatase 134 H (38-126) U/L Total Protein 7.2 (6.3-8.2) g/dL Albumin 3.7 (3.5-5.1) g/dL Lipase 40 (23-300) U/L Urine Color Yellow (Yellow) Urine Appearance Turbid H (Clear) Urine pH 5.5 (5.0-9.0) Ur Specific [place] 1.015 (1.001-1.035) Urine Protein 2+ H (Negative) mg/dL Urine Glucose (UA) 1+ H (Negative) mg/dL Urine Ketones Trace H (Negative) mg/dL Ur Blood (Man) 2+ H (Negative) Urine Nitrate Negative (Negative) Urine Bilirubin Negative (Negative) Urine Urobilinogen 1.0 (<2.0) mg/dL Add Ur Microanalysis Reviewed Leukocyte Esterase Rfl 3+ H (Negative) ERNESTO/UL Urine RBC 3-5 H (0-2) /hpf Urine WBC >100 H (0-3) /hpf Ur Squamous Epith Cells Few (Few) /hpf Urine Bacteria 4+ /hpf Urine Casts 11-20 Influenza A (RT-PCR) Negative (Negative) Influenza B (RT-PCR) Negative (Negative) RSV (RT-PCR) Negative (Negative) SARS-CoV-2 RNA (RT-PCR) Negative (Negative) Imaging Data Radiologist's impression: ITS Impressions Chest X-Ray 03/01/25 19:11 IMPRESSION: Right basilar atelectasis versus pneumonia. Markings in the left lung base which also may indicate atelectasis versus early pneumonia. Abdomen/Pelvis CT 03/01/25 20:55 IMPRESSION: 1. Grossly enlarged uterus. Further evaluation advised. 2. Right renal cyst. 3. Left perinephric fat stranding. Evaluation for gastritis advised. 4. Thickened wall of the urinary bladder which may indicate cystitis. Further evaluation advised. 5. Small fat-containing umbilical hernia. 6. Highly suggestive cholelithiasis. Ultrasound evaluation advised. 7. Hepatomegaly. Discharge Plan Discharge Clinical Impression: Abdominal pain, Urinary tract infection, JOSE (acute kidney injury) Patient Disposition: Home Condition: Improved Instructions: Antibiotic Form, Acute Kidney Injury (DC), Urinary Tract Infection in Women (DC), Abdominal Pain (ED) Additional Instructions: Please follow-up with the family doctor within the next 3-5 days. Return to emergency department for new or worsening symptoms develop. Take the prescribed antibiotic as instructed for urinary tract infection. You recommended to obtain an outpatient ultrasound of the right upper quadrant for further evaluation of your gallbladder/gallstones. You also instructed to maintain your oral hydration by drinking lots of fluids as he did have acute kidney injury. Patient Language: Citizen [place] Prescriptions: New cephalexin 500 mg capsule 500 mg PO Q12H 7 Days Qty: 14 0RF No Action atorvastatin 40 mg tablet irbesartan-hydrochlorothiazide 150-12.5 mg tablet amlodipine 10 mg tablet insulin glargine [Basaglar KwikPen U-100 Insulin] 100 unit/mL (3 mL) insulin pen SUBCUT Trulicity 3 mg/0.5 mL pen injector SUBCUT diclofenac potassium 50 mg tablet 50 mg PO TID PRN (Reason: pain) Qty: 20 0RF hydrocodone-acetaminophen 5-325 mg tablet 1 tablet PO Q8H PRN (Reason: pain) Qty: 14 0RF tramadol 50 mg tablet 50 mg PO Q6H PRN (Reason: pain) Qty: 14 0RF ibuprofen 600 mg tablet 600 mg PO Q6H PRN (Reason: pain) Qty: 30 0RF hydrocodone-acetaminophen 5-325 mg tablet 1 tablet PO Q6H PRN (Reason: pain) Qty: 14 0RF gabapentin 300 mg capsule See Rx Instructions .ROUTE .COMPLEX Qty: 30 0RF Rx Instructions: 300 mg orally; received first dose in ED 10/05. Take 600mg total (300mg BID) on day 2 (10/06), then 900mg total (300mg TID) on subsequent days ibuprofen 600 mg tablet 600 mg PO Q6H PRN (Reason: pain) Qty: 14 0RF Follow-up/Referrals: Vitaly Garcia MD [Physician] - 3 Days PHYSICIAN NOT ON STAFF,NONSTAFF [Primary Care Provider] - 3 Days Time of Disposition: 21:58
[2025-03-01 19:51] LABS: Basophils Percent Auto 0.1 % (0.2-1.2); Hematocrit 36.3 % (37.0-47.0); Hemoglobin 11.4 g/dL (12.0-15.0); Immature Granulocyte Absolute 0.03 K/mm3 (0.00-0.031); Immature Granulocyte Percent A 0.4 % (0-0.5); Lymphocytes Absolute Auto 0.39 K/mm3 (0.9-3.2); Lymphocytes Percent Auto 4.8 % (18.3-44.2); Mean Corpuscular HGB Conc 31.4 g/dl (32-36); Mean Corpuscular Hemoglobin 27.6 pg (26-34); Mean Corpuscular Volume 87.9 fl (80-100); Mean Platelet Volume 11.3 fl (7.4-10.4); Monocytes Absolute Auto 0.7 K/mm3 (0.1-0.6); Monocytes Percent Auto 8.2 % (2.6-8.5); Neutrophils Percent Auto 86.5 % (45.5-73.1); Platelet Count Result 207 k/mm3 (150-375); Red Blood Count 4.13 M/mm3 (4.2-5.4); Red Cell Distribution Width 13.4 % (11.5-14.5); White Blood Count 8.1 K/mm3 (4.5-10.0)
[2025-03-01 20:04] LABS: Magnesium 1.8 mg/dL (1.6-2.3)
[2025-03-01 20:08] LABS: Alanine Aminotransferase 72 U/L (6-35); Albumin Level 3.7 g/dL (3.5-5.1); Alkaline Phosphatase 134 U/L (38-126); Anion Gap 11 mmol/L (4-12); Aspartate Amino Transferase 62 U/L (14-36); Bilirubin,Total 0.9 mg/dL (0.2-1.3); Blood Urea Nitrogen 37 mg/dL (7-17); Calcium 9.1 mg/dL (8.4-10.2); Carbon Dioxide 21 mmol/L (22-30); Chloride 102 mmol/L (98-107); Estimated CRCL calculation 39 ml/min; Estimated Glomerular Filt Rate 29; Glucose 328 mg/dL (65-110); Lipase 40 U/L (23-300); Potassium 3.7 mmol/L (3.4-5.0); Sodium 134 mmol/L (137-145); Total Protein 7.2 g/dL (6.3-8.2)
[2025-03-01 20:13] LABS: Lactic Acid Reflex 0.9 mmol/L (0.7-2.0)
[2025-03-01 20:28] LABS: Influenza A QL RT-PCR Negative (Negative); Influenza B QL RT-PCR Negative (Negative); RSV RNA, RT-PCR Negative (Negative); SARS-CoV-2 RNA PCR Negative (Negative)
[2025-03-01 20:52] LABS: Add Urine Microscopic? YES; Appearance Urine Turbid (Clear); Bacteria Urine 4+ /hpf; Bilirubin Urine Negative (Negative); Blood Urine 2+ (Negative); Color Urine Yellow (Yellow); Glucose Urine UA 1+ mg/dL (Negative); Ketones Urine Trace mg/dL (Negative); Leukocyte Esterase Ur 3+ LEU/UL (Negative); Need Manual Microscopic Reviewed; Nitrate Urine Negative (Negative); Protein Urine 2+ mg/dL (Negative); Specific Grav Ur 1.015 (1.001-1.035); Squamous Epithelial Cell Urine Few /hpf (Few); WBC Urine >100 /hpf (0-3); pH Urine 5.5 (5.0-9.0)
[2025-03-01 22:05] LABS: BEDSIDEPREGUCG Negative (Negative)
[2025-03-01] MEDS: KETOROLAC 15 MG/ML VIAL (*BKC) IV PUSH (22:07)
== END 2025-03-01 23:09 | disposition home or self-care (01) ==
PROVIDERS: Emergency Provider Emergency Medicine
DX: N17.9 Acute kidney failure, unspecified (principal); N39.0 Urinary tract infection, site not specified; R10.33 Periumbilical pain; Z20.822 Contact with and (suspected) exposure to COVID-19; I10 Essential (primary) hypertension; E11.9 Type 2 diabetes mellitus without complications; Z79.4 Long term (current) use of insulin
CPT/HCPCS: 36415; 71045; 74176; 80053; 81001; 81025; 83605; 83690; 83735; 85025; 87086; 87186; 87637; 93005; 96361; 96365; 96375; 99284; J0696; J1885; J7030

== ENCOUNTER 2025-04-04 05:15 | Emergency (ER) | payer OTHER, SELFPAY ==
[2025-04-04 05:18] VITALS: BP 178/98; PULSE 90; RESP 17; TEMP 36.8; O2SAT 99
--- NOTE | 2025-04-04 05:36 | ED.GENADULT ---
HPI - General Adult General Chief complaint: Neck Pain/Injury Stated complaint: L neck and shoulder pain x 2 weeks Time Seen by Provider: 04/04/25 05:25 History of Present Illness HPI narrative: Patient is a 54-year-old female who presents the emergency department this evening complaining of left-sided neck pain for the past 3 weeks. States that she woke up with the pain and inability to fully to turn her head due to left-sided neck muscle spasms/contraction. Patient states that she has been trying to take ibuprofen/use icy Hot/heating pads for her symptoms with no relief. States that when she lays down at home to go to sleep the pain is preventing her from getting any rest. She denies any recent falls or trauma to the neck region. No additional symptoms or concerns at this time. Related Data Home Medications ?Medication ?Instructions ?Recorded ?Confirmed ?Last Taken ?Type amlodipine 10 mg tablet mg 03/16/23 Unknown History atorvastatin 40 mg tablet mg 03/16/23 Unknown History dulaglutide 3 mg/0.5 mL mg subcut 03/16/23 Unknown History subcutaneous pen injector (Trulicity) insulin glargine 100 unit/mL (3 unit subcut 03/16/23 Unknown History mL) subcutaneous pen (Basaglar KwikPen U-100 Insulin) irbesartan 150 tablet 03/16/23 Unknown History mg-hydrochlorothiazide 12.5 mg tablet Allergies Allergy/AdvReac Type Severity Reaction Status Date / Time No Known Allergies Allergy Verified 04/04/25 05:22 Review of Systems Review of Systems: All systems are reviewed and are negative unless stated otherwise in the HPI. [facility] Past Medical History Medical History Hypertension Diabetes Surgical History Surgical History No pertinent past surgical history Exam Narrative: General: Alert, awake, afebrile, in no acute distress. HEENT: PERRL, no rhinorrhea, no post nasal drip, oropharynx clear. Neck: Trachea midline, no JVD, no lymphadenopathy, left-sided torticollis, tenderness to palpation over the left sternocleidomastoid muscle, no midline tenderness to palpation over the cervical spine. Cardiovascular: Regular rate and rhythm, no murmurs, rubs or gallops, no peripheral edema. Respiratory: Clear to auscultation bilaterally, no tachypnea, no wheezing, no rhonchi, no rubs, no respiratory distress. Abdomen: Soft, nontender, nondistended, no rebound, no guarding, no peritoneal signs. Musculoskeletal: No joint swelling or deformity, normal muscle tone. Skin: No rashes or petechia, no signs of infection. Psychiatric: Alert and oriented, normal behavior and judgment for situation. Neurological: Alert and oriented to person, place, and time. Follows all commands. No focal deficits, speech is clear and fluent. Course Vital Signs Vital signs: Vital Signs Temperature 98.2 F 04/04/25 05:18 Pulse Rate 90 04/04/25 05:18 Respiratory Rate 17 04/04/25 05:18 Blood Pressure 178/98 H 04/04/25 05:18 Pulse Oximetry 99 04/04/25 05:18 Oxygen Delivery Room Air 04/04/25 05:18 Temperature 98.2 F 04/04/25 05:18 Pulse Rate 90 04/04/25 05:18 Respiratory Rate 17 04/04/25 05:18 Blood Pressure 178/98 H 04/04/25 05:18 Pulse Oximetry 99 04/04/25 05:18 Oxygen Delivery Room Air 04/04/25 05:18 Medical Decision Making MDM Narrative Medical decision making narrative: The patient was evaluated by myself in the emergency department. History is obtained from patient who is an independent historian and physical exam was performed. External medical records were reviewed at this time. Patient was administered an oral [place] and was informed that she will be sent home on a few pills of [place] and muscle relaxers to help with her symptoms until she follows up with her primary care physician. Differential diagnosis considerations include torticollis, muscle spasms/contraction. Comorbidities impacting this visit include none. I have evaluated and discussed social determinants of health with the patient that could potentially impact subsequent diagnosis and treatment plans. On repeat assessment of the patient, reevaluation revealed that the patient is doing well and is in no acute distress. Patient symptoms have improved since she arrived to our emergency department. Repeat vital signs were all reviewed and noted to be stable. Differential diagnosis and treatment plan were discussed with the patient at bedside. Patient agrees with discussion and after shared medical decision making agrees with discharge. All questions were answered to the patient's satisfaction. Patient will follow up with her PCP in 3-5 days. Patient was provided with strict return precautions and instructed to return to the emergency department if any new or worsening symptoms develop. The patient was discharged in stable condition. Vital Signs Vital Signs: Vital Signs Temperature 98.2 F 04/04/25 05:18 Pulse Rate 90 04/04/25 05:18 Respiratory Rate 17 04/04/25 05:18 Blood Pressure 178/98 H 04/04/25 05:18 Pulse Oximetry 99 04/04/25 05:18 Oxygen Delivery Room Air 04/04/25 05:18 Temperature 98.2 F 04/04/25 05:18 Pulse Rate 90 04/04/25 05:18 Respiratory Rate 17 04/04/25 05:18 Blood Pressure 178/98 H 04/04/25 05:18 Pulse Oximetry 99 04/04/25 05:18 Oxygen Delivery Room Air 04/04/25 05:18 Discharge Plan Discharge Clinical Impression: Left torticollis Patient Disposition: Home Condition: Improved Instructions: Antibiotic Form, Spasmodic Torticollis (ED) Additional Instructions: Please follow-up with your family doctor within the next 3-5 days. Return emergency department if any new or worsening symptoms develop. Take the prescribed muscle relaxers and pain medications as needed. Be careful with the muscle relaxers and pain medications as they will make you drowsy so no driving while taking these medications. Patient Language: [place] Prescriptions: New methocarbamol 750 mg tablet 750 mg PO HS Qty: 10 0RF hydrocodone-acetaminophen 5-325 mg tablet 1 tablet PO Q8H PRN (Reason: pain) Qty: 7 0RF No Action atorvastatin 40 mg tablet irbesartan-hydrochlorothiazide 150-12.5 mg tablet amlodipine 10 mg tablet insulin glargine [Basaglar KwikPen U-100 Insulin] 100 unit/mL (3 mL) insulin pen SUBCUT Trulicity 3 mg/0.5 mL pen injector SUBCUT diclofenac potassium 50 mg tablet 50 mg PO TID PRN (Reason: pain) Qty: 20 0RF hydrocodone-acetaminophen 5-325 mg tablet 1 tablet PO Q8H PRN (Reason: pain) Qty: 14 0RF tramadol 50 mg tablet 50 mg PO Q6H PRN (Reason: pain) Qty: 14 0RF ibuprofen 600 mg tablet 600 mg PO Q6H PRN (Reason: pain) Qty: 30 0RF hydrocodone-acetaminophen 5-325 mg tablet 1 tablet PO Q6H PRN (Reason: pain) Qty: 14 0RF gabapentin 300 mg capsule See Rx Instructions .ROUTE .COMPLEX Qty: 30 0RF Rx Instructions: 300 mg orally; received first dose in ED 10/05. Take 600mg total (300mg BID) on day 2 (10/06), then 900mg total (300mg TID) on subsequent days ibuprofen 600 mg tablet 600 mg PO Q6H PRN (Reason: pain) Qty: 14 0RF cephalexin 500 mg capsule 500 mg PO Q12H 7 Days Qty: 14 0RF Follow-up/Referrals: Alphonse Thomas MD [Physician] - 3 Days PHYSICIAN NOT ON STAFF,NONSTAFF [Primary Care Provider] - 3 Days Time of Disposition: 05:39
[2025-04-04] MEDS: HYDROcodone/acetaminophen (*CRX) 5-325 MG TABLET 1 TAB PO (05:40)
== END 2025-04-04 05:54 | disposition home or self-care (01) ==
PROVIDERS: Emergency Provider Emergency Medicine
DX: M43.6 Torticollis (principal); I10 Essential (primary) hypertension; E11.9 Type 2 diabetes mellitus without complications; Z79.4 Long term (current) use of insulin
CPT/HCPCS: 99283; A9270

== ENCOUNTER 2025-08-08 18:40 | Emergency (ER) | payer OTHER, SELFPAY ==
--- OUTSIDE RECORDS SUMMARY | 2025-08-08 18:42 | XMS_ITS | Encounter Summary ---
Author Organization [facility] Address [address] [place] [address] Care Team Providers Care Glue Clamp Operator Name Role Phone Leah Clement Julianne SENIOR FIELD ENGINEER-VICE PRESIDENT OF MANUFACTURING Primary Care Provi matthew Encounter Details Date Type Department Care Team (Late st Contact Info) Description 09/14/2022 Telephone [facility] [address] [place] [address] Sonia Muller, [address] [phone] Social History Tobacco Use Types Packs/Day Years Used Date Smoking Tobacco: Never Smokeless Tobacco: Never Alcohol Use Standard Drinks/Week Comments No 0 (1 standard drink = 0.6 oz pur e alcohol) AUDIT-C Answer Date Recorded Q1: How often do you have a drink containing alc ohol? Never 08/16/2021 Average Number of Drinks Not on file 021 Q3: How often do you have si x or more drinks on one occasion? 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 Pierson called stating that the device prescribed costs $75. Pt states the directions from Dr. Muller were to be in contact if this were the case. [phone] [facility] documented in this encounter Plan of Treatment Not on file documented as of this encounter Visit Diagnoses Not on filedocumented in this encounter Care Teams Glue Clamp Operator Relationship Specialty Start Date End Date Leah Clement, SENIOR FIELD ENGINEER-VICE PRESIDENT OF MANUFACTURING [address] [address] PCP - General Nurse Practitioner Family 10/08/23 documented as of this encounter
--- OUTSIDE RECORDS SUMMARY | 2025-08-08 18:42 | XMS_ITS | Clinical Summary ---
Author Organization [facility] Address [address] [place] [address] Care Team Providers Care Crystal Flat Grinder Name Role Phone UrbanoMelvaLeahstone Whitaker APRN-CUSTOMS PORT DIRECTOR Primary Care Provi matthew Source Comments [facility],non-owned Affiliates and Associated Physician Practices is amultiple site organization consisting of ambulatory clinics and hospital sitesin [place], [place], [place] and [place]. This disclosure is being madepursuant to the Care Everywhere program and may not contain all information available regarding this patient. Last updated 18.[facility] Allergies No known active allergies Medications * Be aware that medications may not be up to date on this document. Alwaysverify current medications with the patient. traMADol (ULTRAM) 50 MG tablet Take 50 mg by mouth q8h PRN (Pain). 10 tablet 0 7 Active Additional Information Patient not taking.Reported on 09/11/2022 amLODIPine (Norvasc) 10 MG tablet Take 1 (one) tablet by mouth once daily as directed. 2 Active atorvastatin (Lipitor) 40 MG tablet TAKE 1 TABLET BY MOUTH EVERY DAY AT BEDTIME 2 Active Blood Glucose Monitoring Suppl (OneTouch Verio Flex System) w/Device KIT 1 Active vitamin D, ergocalciferol, (Drisdol) 1.25 MG (40866 UT) capsule TAKE 1 CAPSULE BY MOUTH EVERY WEEK DIRECTED 2 Active OneTouch Verio test strip USE DIRECTED TO TEST BLOOD GLUCOSE THREE TIMES A DAY 2 Active Basaglar KwikPen (Basaglar) pen 40 (forty) Units 2 Active Lancets (ONETOUCH DELICA PLUS 33G EXTRA FINE LANCET) 2 times daily 1 Active Lancets (ONETOUCH DELICA PLUS 33G EXTRA FINE LANCET) 2 Active potassium chloride ER (Klor-Con) 10 MEQ tablet Take 1 (one) tablet by mouth once daily 2 Active Insulin Pen Needle (BD Pen Needle Tatiana U/F) 32G X 4 MM MISC Use 1 Each 4 times daily 400 Each 4 2 Active Cholecalciferol (Vitamin D3) 25 MCG (1000 UT)Indications:Vi tamin D deficiency Take 1 (one) capsule by mouth once daily 90 capsule 4 3 Active Additional Information Patient not taking.Reported on 10/08/2023 Lancets (ONETOUCH DELICA PLUS 33G EXTRA FINE LANCET)Indication s:Uncontrolled type 2 diabetes mellitus with hyperglycemia (HCC) Use 1 Each 4 times daily 100 Each 11 3 Active blood glucose (OneTouch Verio) test stripIndications: Uncontrolled type 2 diabetes mellitus with hyperglycemia (HCC) Use 1 (one) strip 4 times daily 100 strip 4 3 Active Blood Glucose Monitoring Suppl (OneTouch Verio) w/Device KITIndications:Un controlled type 2 diabetes mellitus with hyperglycemia (HCC) Use 1 kit as directed 1 kit 4 3 Active Continuous Blood Gluc Family Support Coordinator (Dexcom G7 Family Support Coordinator) DEVIIndications:U ncontrolled type 2 diabetes mellitus with hyperglycemia (HCC) Use 1 kit as directed 1 Each 3 Active Continuous Blood Gluc Sensor (Dexcom G7 Sensor) MISCIndications:U ncontrolled type 2 diabetes mellitus with hyperglycemia (HCC) Use 1 Each every 10 days 3 Each 11 3 Active amitriptyline (Elavil) 25 MG tablet Take 1 (one) tablet by mouth 3 Active diclofenac potassium (Cataflam) 50 MG tablet Take 1 (one) tablet by mouth 3 times daily as needed For pain. 3 Active diclofenac sodium EC (Voltaren) 25 MG tablet Take 1 (one) tablet by mouth once daily 3 Active HYDROcodone-aceta minophen (Enders) 5-325 MG tablet Take 1 (one) tablet by mouth every 6 hours as needed pain 3 Active ibuprofen (Motrin) 600 MG tablet Take 1 (one) tablet by mouth 2 times daily 2 Active pregabalin (Lyrica) 50 MG capsule TAKE 1 CAPSULE BY MOUTH THREE TIMES DAILY DIRECTED 3 Active IRBESARTAN-HYDROC HLOROTHIAZIDE PO Act tashia oxyCODONE, immediate release, (Roxicodone) 10 MG tabletIndications :Diabetic Neuropathy Take 1 (one) tablet by mouth at bedtime Take at bedtime as needed for pain Reasons: Diabetes with Nerve Disease 14 tablet 4 Active Alcohol Swabs (B-D SINGLE USE SWABS REGULAR) USE 1 PAD FOUR TIMES DAILY DIRECTED 100 Each 3 4 Active DULoxetine (Cymbalta) 20 MG capsuleIndication s:Diabetic neuropathy, painful (HCC) Take 1 (one) capsule by mouth once daily 30 capsule 3 4 Active dulaglutide (Trulicity) 3 MG/0.5ML injectionIndicati ons:Uncontrolled type 2 diabetes mellitus with hyperglycemia (HCC) ADMINISTER 3 MG UNDER THE SKIN EVERY 7 DAYS 2 mL 3 5 Active insulin lispro (HumaLOG;ADMelog) 100 UNIT/ML penIndications:Un controlled type 2 diabetes mellitus with hyperglycemia (HCC) ADMINISTER 10 UNITS UNDER THE SKIN THREE TIMES DAILY 15 mL 3 5 Active TRUEplus Pen [place] 31G X 5 MM needleIndications :Uncontrolled other specified diabetes mellitus with hyperglycemia (HCC) 4 times daily 400 Each 3 5 Active Active Problems Problem Noted Date Diagnosed Date Hypokalemia 01/24/2023 08/27/2023 Overview (08/27/2023): Last Assessment & Plan: Condition: stable Follow up in: if symptoms worsen or fail to improve Morbid (severe) obesity due to excess calories 0 01/24/2023 08/27/2023 Overview (08/27/2023): Last Assessment & Plan: Condition: stable Co-morbidities: Type 2 Diabetes, Hypertension and Hyperlipidemia Follow up in: if symptoms worsen or fail to improve Uncontrolled diabetes mellitus with hyperglycemi a 01/08/2023 Vitamin D deficiency 01/08/2023 Other hyperlipidemia 01/08/2023 HTN (hypertension) 01/08/2023 Encounters Date Type Department Care Team Description 06/08/2025 Refill [facility] - Endocrinology [address] [facility], [facility] [place] [address] Sonia Muller, DO MEDICATION REFILL from Last 3 Months Social History Tobacco Use Types Packs/Day Years Used Date Smoking Tobacco: Never Smokeless Tobacco: Never Tobacco Cessation:Counseling Given: Not Answered Alcohol Use Standard Drinks/Week Comments No 0 [...] on file Legal Sex Female 5:40 PM SUPPLY CHAIN ASSISTANT Gender Identity Not on file Sexual Orientation Not on file Last Filed Vital Signs Vital Sign Reading Time Taken Comments Blood Pressure 133/85 10/08/2023 9:24 AM SUPPLY CHAIN ASSISTANT Pulse 71 10/08/2023 9:24 AM SUPPLY CHAIN ASSISTANT Temperature 36.6 C (97.8 F) 10/08/2023 9:24 AM SUPPLY CHAIN ASSISTANT Respiratory Rate 18 01/08/2023 8:26 AM CDT Oxygen Saturation 99% 10/08/2023 9:24 AM SUPPLY CHAIN ASSISTANT Inhaled Oxygen Concentration - - Weight 103.9 kg (229 lb) 10/08/2023 9:24 AM SUPPLY CHAIN ASSISTANT Height 162.6 cm (5' 4) 08/27/2023 7:36 AM SUPPLY CHAIN ASSISTANT Body Mass Index 39.31 08/27/2023 7:36 AM SUPPLY CHAIN ASSISTANT Plan of Treatment Health Maintenance Due Date Last Done Comments COLOGUARD (AGES 45-75) - COLON CA SCREENING 1970 COLON MONITORING 1970 COLONOSCOPY - COLON CA SCREENING 1970 CT COLONOGRAPHY - COLON CA SCREENING 1970 Colorectal Cancer Screening 1970 FIT - COLON CA SCREENING 1970 FLEX SIG - COLON CA SCREENING 1970 MAMMOGRAM 1970 HIV SCREENING 1985 HEPATITIS C SCREENING 04/07/1988 DTAP/TDAP/TD VACCINES (1 - Tdap) 1989 HEPATITIS B VACCINE (1 of 3 - 19+ 3-dose series) 1989 PNEUMOCOCCAL VACCINE 50+ (1 of 2 - PCV) 1989 Cervical Cancer Screening 1991 PAP SMEAR 1991 PAP with HPV 2000 ZOSTER VACCINE (1 of 2) 2020 DIABETES RETINOPATHY SCREENING 01/08/2023 DIABETES-FOOT EXAM WITH MONOFILAMENT 01/08/2023 DIABETES-HGB A1C 04/09/2023 01/08/2023, 09/11/2022 DIABETES-SERUM CREATININE 09/11/2023 09/11/2022 DEPRESSION SCREENING 09/23/2024 DIABETES - URINE PROTEIN SCREENING 09/23/2024 09/11/2022 COVID-19 VACCINE ( season) 2025 07/09/2022, 09/20/2021, 03/21/2021, Additional history exists INFLUENZA VACCINE (#1) 2025 HIB VACCINE Aged Out No longer eligi ble based on patient's age to complete this topic HPV VACCINE Aged Out No longer eligi ble based on patient's age to complete this topic MENINGOCOCCAL (Group B) VACCINE SHARED DECISION-MAKING Aged Out No longer eligible based on patient's age to complete this topic MENINGOCOCCAL GROUPS A/C/Y/W VACCINE Aged Out No longer eligible based on patient's age to complete this topic Procedures Procedure Name Priority Date/Time Associated Diagnosis Comments HEMOGLOBIN A1C - POINT OF CARE (AMB) [facility] Routine 01/08/2023 Uncontrolled type 2 diabetes mellitus with hyperglycemia MICROALB/CREAT RATIO URINE RANDOM PANEL Routine 09/11/2022 9:53 AM SUPPLY CHAIN ASSISTANT Uncontrolled type 2 diabetes mellitus with hyperglycemia COMPREHENSIVE METABOLIC PANEL Routine 09/11/2022 9:53 AM SUPPLY CHAIN ASSISTANT Uncontrolled type 2 diabetes mellitus with hyperglycemia from Last 3 Months or Most Recently Relevant to Health Maintenance Results * HEMOGLOBIN A1C - POINT OF CARE (AMB) [facility] (01/08/2023) [facility] Hemoglobin A1c POCT 12.2 % BLOOD SPECIMEN / Unknown 01/08/2023 Sonia Muller DO LAB - POINT OF CARE ORDERABLES F inal Result * MICROALB/CREAT RATIO URINE RANDOM PANEL (09/11/2022 9:53 AM [facility]) [facility] Albumin Random Urine 20.8 Not Established ug/mL 09/11/2022 11:01 AM [facility] Creatinine Urine 94 Not Established mg/dL 09/11/2022 11:01 AM [facility] Urine Albumin/Creati nine Ratio 22 <30 mg/g 09/11/2022 11:01 AM [facility] Urine URINE SPECIMEN OBTAINED BY CLEAN CATCH PROCEDURE / Unknown Collection / Unknown 09/11/2022 9:53 AM SUPPLY CHAIN ASSISTANT 09/11/2022 10:19 AM SUPPLY CHAIN ASSISTANT Sonia Muller DO LAB - URINE CHEMISTRY ORDERABLES Final Result Performing Organization Address City/State/[facility] Co de Phone Number [facility] [address] [place] [phone], [facility] [phone] * (ABNORMAL) COMPREHENSIVE METABOLIC PANEL (09/11/2022 9:53 AM [facility]) [facility] BUN 17 7 - 26 mg/dL 09/11/2022 10:52 AM [facility] Creatinine 0.85 0.56 - 0.96 mg/dL 09/11/2022 10:52 AM [facility] Sodium 140 136 - 145 mmol/L 09/11/2022 10:52 AM [facility] Potassium 4.4 3.5 - 4.5 mmol/L 09/11/2022 10:52 AM [facility] Chloride 103 98 - 107 mmol/L 09/11/2022 10:52 AM [facility] CO2 27 22 - 29 mmol/L 09/11/2022 10:52 AM [facility] Glucose 280(H) 70 - 115 mg/dL 09/11/2022 10:52 AM [facility] Calcium 9.8 8.4 - 10.2 mg/dL 09/11/2022 10:52 AM [facility] Protein Total 7.4 6.0 - 8.3 g/dL 09/11/2022 10:52 AM [facility] Albumin 4.0 3.4 - 5.0 g/dL 09/11/2022 10:52 AM [facility] Bilirubin Total 0.4 0.2 - 1.2 mg/dL 09/11/2022 10:52 AM [facility] Alkaline Phosphatase 74 40 - 150 U/L 09/11/2022 10:52 AM [facility] ALT 17 5 - 55 U/L 09/11/2022 10:52 AM [facility] AST 14 5 - 34 U/L 09/11/2022 10:52 AM [facility] Anion Gap 14 8 - 18 09/11/2022 10:52 AM [facility] BUN/Creatinine Ratio 20 7 - 23 09/11/2022 10:52 AM [facility] Osmolality Calculated 302(H) 270 - 300 mOsm/kg 09/11/2022 10:52 AM [facility] Albumin/Globulin Ratio 1.2 1.1 - 2.3 09/11/2022 10:52 AM [facility] eGFR by CKD-EPI 82(L) >=90 mL/min/1.7 3 m2 09/11/2022 10:52 AM [facility] Blood BLOOD SPECIMEN / Unknown Lab Venipuncture / Unknown 09/11/2022 9:53 AM [facility] 09/11/2022 10:21 AM [facility] us Sonia Muller DO LAB - CHEMISTRY ORDERABLES Final Result [facility] [address] [place] [address], [facility] [phone] from Last 3 Months or Most Recently Relevant to Health Maintenance Insurance [facility] Care Teams Crystal Flat Grinder Relationship Specialty Start Date End Date Leah Clement, REBAR BENDER-CUSTOMS PORT DIRECTOR [address] [phone] PCP - General Nurse Practitioner Family 10/08/23
--- OUTSIDE RECORDS SUMMARY | 2025-08-08 18:42 | XMS_ITS | Encounter Summary ---
Author Organization [facility] Address [address] [facility] [place] [address] Care Team Providers Care Car Carder Name Role Phone Urbano Leah R CHRONIC DISEASE MANAGER-MANUFACTURING LEAD Primary Care Provi matthew Encounter Details Date Type Department Care Team (Late st Contact Info) Description 10/18/2022 Telephone [facility], Diabetes and Metabolism [address] [facility], [place] [address] Sonia Muller, DO [address] [facility] [address] [place] [address] Social History Tobacco Use Types Packs/Day Years [...] on file Legal Sex Female 5:40 PM INGOT CAR OPERATOR Gender Identity Not on file Sexual Orientation Not on file documented as of this encounter Miscellaneous Notes * Telephone Encounter - Kanchan Martin LPN - 10/18/2022 2:19 PM CST Pharmacy requesting to substitute Insulin Aspart Flexpen Inj 3ml for Generic Insulin Lispro Pen, Humalog Kwikpens. Please advise. Pharmacy switched to Lispro as per pts insurance. T CAR OPERATOR T CAR OPERATOR documented in this encounter Plan of Treatment Not on file documented as of this encounter Visit Diagnoses Not on filedocumented in this encounter Care Teams Car Carder Relationship Specialty Start Date End Date Leah Clement, CHRONIC DISEASE MANAGER-MANUFACTURING LEAD [address] [address] PCP - General Nurse Practitioner Family 10/08/23 documented as of this encounter
--- OUTSIDE RECORDS SUMMARY | 2025-08-08 18:42 | XMS_ITS | Encounter Summary ---
Author Organization [facility] Address [address] [facility] [place] [address] Care Team Providers Care Channel Opener Outsoles Name Role Phone Leah Clement Julianne JASMINEN-BAKERY MACHINE MECHANIC SUPERVISOR Primary Care Provi matthew Reason for Visit * Reason Onset Date Comments MEDICATION REFILL 07/24/2024 Encounter Details Date Type Department Care Team (Late st Contact Info) Description 07/24/2024 Refill [facility] - Neurology [address] [facility], [facility] [place] [id number] Felipa Soria MD [address] [place] [phone] MEDICATION REFILL Social History Tobacco Use Types Packs/Day Years [...] on file Legal Sex Female 5:40 PM DERRICK ENGINEER Gender Identity Not on file Sexual Orientation Not on file documented as of this encounter Miscellaneous Notes * Telephone Encounter - Felipa Soria MD - 07/27/2024 11:32 AM CST ok ICK ENGINEER * Telephone Encounter - Jean Caicedo - 07/24/2024 3:04 PM CDT Refill Request Britt Gallo Dangelo JOAN: 12/2023 scheduled: Visit date not found LRF: 06/2024 Qty Disp: 30 # of refills: 3 Allergies: No Known Allergies Pended Medication Order: Requested Prescriptions Pending Prescriptions Disp Refills DULoxetine (Cymbalta) 20 MG capsule 30 capsule 3 Sig: Take 1 (one) capsule by mouth once daily documented in this encounter Plan of Treatment Not on file documented as of this encounter Visit Diagnoses Diagnosis Diabetic neuropathy, painful (HCC) Type II or unspecified type diabetes mellitus with neurological manifestations, not stated as uncontrolled documented in this encounter Care Teams Channel Opener Outsoles Relationship Specialty Start Date End Date Leah Clement, METAL BOX MAKER-BAKERY MACHINE MECHANIC SUPERVISOR [address] [place] [phone] PCP - General Nurse Practitioner Family 10/08/23 documented as of this encounter
[2025-08-08 18:47] VITALS: BP 147/74; PULSE 95; RESP 16; TEMP 36.3; O2SAT 100
--- NOTE | 2025-08-08 20:10 | ED.GENADULT ---
HPI - General Adult General Chief complaint: Extremity Problem,Nontraumatic <HILARY Barba - Last Filed: 08/09/25 01:41> Stated complaint: bilateral heel pain <HILARY Barba - Last Filed: 08/09/25 01:41> Time Seen by Provider: 08/08/25 19:28 <HILARY Barba - Last Filed: 08/09/25 01:41> History of Present Illness HPI narrative: 55-year-old female presenting with bilateral heel pain that has been ongoing for the last few weeks however patient states she has not been able to sleep the last few days due to the pain severity. Patient has a significant history of uncontrolled diabetes and neuropathy. Patient believes her last A1c was between 10 and 11. She reports diffuse swelling involving all toes and increased pain in bilateral heels as well as numbness/tingling. She reports feeling unsteady with ambulation. Patient is also concerned for continued UTIs symptoms. She states that she just finished previous antibiotic yesterday but is still experiencing dysuria and increased urgency /frequency. Denies nausea/vomiting/ diarrhea, abdominal pain, fevers/chills, and chest pain / shortness of breath. <HILARY Barba - Last Filed: 08/09/25 01:41> Related Data Home medications: Home Medications ?Medication ?Instructions ?Recorded ?Confirmed ?Last Taken ?Type amlodipine 10 mg tablet mg 03/16/23 Unknown History atorvastatin 40 mg tablet mg 03/16/23 Unknown History dulaglutide 3 mg/0.5 mL mg subcut 03/16/23 Unknown History subcutaneous pen injector (Trulicity) insulin glargine 100 unit/mL (3 unit subcut 03/16/23 Unknown History mL) subcutaneous pen (Basaglar KwikPen U-100 Insulin) irbesartan 150 tablet 03/16/23 Unknown History mg-hydrochlorothiazide 12.5 mg tablet <HILARY Barba Last Filed: 08/09/25 01:41> Allergies/adverse reactions: Allergies Allergy/AdvReac Type Severity Reaction Status Date / Time No Known Allergies Allergy Verified 08/08/25 18:43 <HILARY Barba Last Filed: 08/09/25 01:41> Review of Systems Review of Systems: All systems reviewed & are unremarkable except as noted in HPI and below <HILARY Barba - Last Filed: 08/09/25 01:41> PMFSH Past Medical History Medical History: Medical History Hypertension Diabetes <HILARY Barba - Last Filed: 08/09/25 01:41> Surgical History Surgical History: Surgical History No pertinent past surgical history <HILARY Barba - Last Filed: 08/09/25 01:41> Exam Narrative: GENERAL: Tearful, anxious-appearing. In mild acute distress. HEAD: Normocephalic, atraumatic. EYES: PERRLA and EOMI. ENT: Nares clear, no rhinorrhea or epistaxis. Mucous membranes moist. Oropharynx without tonsillar hypertrophy exudate or other lesions. Bilateral TMs pearly perez non-bulging NECK: Supple. No adenopathy or masses. No carotid bruits or JVD CHEST: Clear to auscultation. No respiratory distress. No wheezes rales or rhonchi HEART: Regular rate and rhythm. No murmur heard. Normal peripheral pulses. ABDOMEN: Soft, nontender, nondistended, normal active bowel sounds. EXTREMITIES: Normal range of motion. No edema. SKIN: Warm, dry, no rash. NEURO: No focal deficits. Alert and oriented x3. PSYCH: Normal mood and affect <HILARY Barba - Last Filed: 08/09/25 01:41> Course Vital Signs Vital signs: Vital Signs Temperature 36.3 C L 08/08/25 18:47 Pulse Rate 95 08/08/25 18:47 Respiratory Rate 16 08/08/25 18:47 Blood Pressure 147/74 H 08/08/25 18:47 Pulse Oximetry 100 08/08/25 18:47 Temperature 36.3 C L 08/08/25 18:47 Pulse Rate 73 08/08/25 21:45 Respiratory Rate 20 08/08/25 21:45 Blood Pressure 180/92 H 08/08/25 21:45 Pulse Oximetry 97 08/08/25 21:45 <HILARY Barba - Last Filed: 08/09/25 01:41> Vital Signs Temperature 36.3 C L 08/08/25 18:47 Pulse Rate 95 08/08/25 18:47 Respiratory Rate 16 08/08/25 18:47 Blood Pressure 147/74 H 08/08/25 18:47 Pulse Oximetry 100 08/08/25 18:47 Temperature 36.3 C L 08/08/25 18:47 Pulse Rate 73 08/08/25 21:45 Respiratory Rate 20 08/08/25 21:45 Blood Pressure 180/92 H 08/08/25 21:45 Pulse Oximetry 97 08/08/25 21:45 <Saranya Marcial MD - Last Filed: 08/09/25 22:42> Medical Decision Making MDM Narrative Medical decision making narrative: 55-year-old female presenting with bilateral heel pain that has been ongoing for the last few weeks however patient states she has not been able to sleep the last few days due to the pain severity. Patient has a significant history of uncontrolled diabetes and neuropathy. Patient believes her last A1c was between 10 and 11. She reports diffuse swelling involving all toes and increased pain in bilateral heels as well as numbness/tingling. She reports feeling unsteady with ambulation. Patient is also concerned for continued UTIs symptoms. She states that she just finished previous antibiotic yesterday but is still experiencing dysuria and increased urgency /frequency. Denies nausea/vomiting/ diarrhea, abdominal pain, fevers/chills, and chest pain / shortness of breath. Upon my initial assessment, patient is tearful and uncomfortable appearing. I do not appreciate any swelling in her feet. No signs of foot ulcers or other concerning diabetic lesions. UA demonstrates a mild UTI treatable outpatient. Nursing staff reports patient ambulated to bathroom without issues. Administered Toradol and Villisca. Patient endorses improvement. Patient has been seen before in the ED for diabetic neuropathy symptoms and has been given a Neurology referral in the past. Emphasized to patient the importance of seeing a specialist for further care as well as the importance of following up with her pcp for proper coordination of care. Patient agrees with discussion and after shared medical decision making agrees with plan of care. Will send home with brief pain regimen until she is able to be seen by PCP and/or specialist as well as Bactrim for her UTI. All questions were answered to the patient's satisfaction. The patient is appropriate for outpatient treatment and follow-up. Given reasons to return. <HILARY Barba - Last Filed: 08/09/25 01:41> 55-year-old female presenting with bilateral heel pain that has been ongoing for the last few weeks however patient states she has not been able to sleep the last few days due to the pain severity. Patient has a significant history of uncontrolled diabetes and neuropathy. Patient believes her last A1c was between 10 and 11. She reports diffuse swelling involving all toes and increased pain in bilateral heels as well as numbness/tingling. She reports feeling unsteady with ambulation. Patient is also concerned for continued UTIs symptoms. She states that she just finished previous antibiotic yesterday but is still experiencing dysuria and increased urgency /frequency. Denies nausea/vomiting/ diarrhea, abdominal pain, fevers/chills, and chest pain / shortness of breath. Upon my initial assessment, patient is tearful and uncomfortable appearing. I do not appreciate any swelling in her feet. No signs of foot ulcers or other concerning diabetic lesions. UA demonstrates a mild UTI treatable outpatient. Nursing staff reports patient ambulated to bathroom without issues. Administered Toradol and Villisca. Patient endorses improvement. Patient has been seen before in the ED for diabetic neuropathy symptoms and has been given a Neurology referral in the past. Emphasized to patient the importance of seeing a specialist for further care as well as the importance of following up with her pcp for proper coordination of care. Patient agrees with discussion and after shared medical decision making agrees with plan of care. Will send home with brief pain regimen until she is able to be seen by PCP and/or specialist as well as Bactrim for her UTI. All questions were answered to the patient's satisfaction. The patient is appropriate for outpatient treatment and follow-up. Given reasons to return. A prescription of Villisca 5/325 once every 4 hour as needed for intractable peripheral neuropathy pain 14 tablets. <Saranya Marcial MD - Last Filed: 08/09/25 22:42> Medical Records Medical records reviewed: Yes I reviewed the external patient's medical records. <HILARY Barba - Last Filed: 08/09/25 01:41> Vital Signs Vital Signs: Vital Signs Temperature 36.3 C L 08/08/25 18:47 Pulse Rate 95 08/08/25 18:47 Respiratory Rate 16 08/08/25 18:47 Blood Pressure 147/74 H 08/08/25 18:47 Pulse Oximetry 100 08/08/25 18:47 Temperature 36.3 C L 08/08/25 18:47 Pulse Rate 73 08/08/25 21:45 Respiratory Rate 20 08/08/25 21:45 Blood Pressure 180/92 H 08/08/25 21:45 Pulse Oximetry 97 08/08/25 21:45 <HILARY Barba - Last Filed: 08/09/25 01:41> Vital Signs Temperature 36.3 C L 08/08/25 18:47 Pulse Rate 95 08/08/25 18:47 Respiratory Rate 16 08/08/25 18:47 Blood Pressure 147/74 H 08/08/25 18:47 Pulse Oximetry 100 08/08/25 18:47 Temperature 36.3 C L 08/08/25 18:47 Pulse Rate 73 08/08/25 21:45 Respiratory Rate 20 08/08/25 21:45 Blood Pressure 180/92 H 08/08/25 21:45 Pulse Oximetry 97 08/08/25 21:45 <Saranya Marcial MD - Last Filed: 08/09/25 22:42> Lab Data Lab results reviewed: Yes I reviewed the patient's lab results. <HILARY Barba - Last Filed: 08/09/25 01:41> Labs: Lab Results 08/08/25 Range/Units 20:26 Urine Color Yellow (Yellow) Urine Appearance Clear (Clear) Urine pH 6.0 (5.0-9.0) Ur Specific [place] 1.021 (1.001-1.035) Urine Protein 1+ H (Negative) mg/dL Urine Glucose (UA) 3+ H (Negative) mg/dL Urine Ketones Negative (Negative) mg/dL Ur Blood (Man) Negative (Negative) Urine Nitrate Negative (Negative) Urine Bilirubin Negative (Negative) Urine Urobilinogen 0.2 (<2.0) mg/dL Leukocyte Esterase Rfl Trace H (Negative) ERNESTO/UL Urine RBC 0-2 (0-2) /hpf Urine WBC 11-20 H (0-3) /hpf Ur Squamous Epith Cells None seen (Few) /hpf Urine Bacteria None seen /hpf Urine Casts 0-2 <HILARY Babra - Last Filed: 08/09/25 01:41> Lab Results 08/08/25 Range/Units 20:26 Urine Color Yellow (Yellow) Urine Appearance Clear (Clear) Urine pH 6.0 (5.0-9.0) Ur Specific [place] 1.021 (1.001-1.035) Urine Protein 1+ H (Negative) mg/dL Urine Glucose (UA) 3+ H (Negative) mg/dL Urine Ketones Negative (Negative) mg/dL Ur Blood (Man) Negative (Negative) Urine Nitrate Negative (Negative) Urine Bilirubin Negative (Negative) Urine Urobilinogen 0.2 (<2.0) mg/dL Leukocyte Esterase Rfl Trace H (Negative) ERNESTO/UL Urine RBC 0-2 (0-2) /hpf Urine WBC 11-20 H (0-3) /hpf Ur Squamous Epith Cells None seen (Few) /hpf Urine Bacteria None seen /hpf Urine Casts 0-2 <Saranya Marcial MD - Last Filed: 08/09/25 22:42> Discharge Plan Discharge Clinical Impression: Neuropathy <HILARY Barba - Last Filed: 08/09/25 01:41> Patient Disposition: Home <HILARY Barba - Last Filed: 08/09/25 01:41> Condition: Stable <HILARY Barba - Last Filed: 08/09/25 01:41> Instructions: Diabetic Neuropathy (ED) <HILARY Barba - Last Filed: 08/09/25 01:41> Additional Instructions: Return to the emergency department if you experience fever, chest pain, shortness of breath, abdominal pain with nausea and vomiting, weakness, numbness/tingling, or any other symptoms that are concerning to you. You are being given a neurologist contact number. You should also discuss with your primary care doctor other appropriate medications to help treat your discomfort. <HILARY Barba - Last Filed: 08/09/25 01:41> Patient Language: Mohawk <HILARY Barba - Last Filed: 08/09/25 01:41> Prescriptions: New hydrocodone-acetaminophen 5-325 mg tablet 1 tablet PO Q6H PRN (Reason: pain) Qty: 14 0RF sulfamethoxazole-trimethoprim 800-160 mg tablet 1 tablet PO Q12H Qty: 7 0RF hydrocodone-acetaminophen 5-325 mg tablet 1 tablet PO Q4H PRN (Reason: pain) Qty: 14 0RF No Action atorvastatin 40 mg tablet irbesartan-hydrochlorothiazide 150-12.5 mg tablet amlodipine 10 mg tablet insulin glargine [Basaglar KwikPen U-100 Insulin] 100 unit/mL (3 mL) insulin pen SUBCUT Trulicity 3 mg/0.5 mL pen injector SUBCUT diclofenac potassium 50 mg tablet 50 mg PO TID PRN (Reason: pain) Qty: 20 0RF hydrocodone-acetaminophen 5-325 mg tablet 1 tablet PO Q8H PRN (Reason: pain) Qty: 14 0RF tramadol 50 mg tablet 50 mg PO Q6H PRN (Reason: pain) Qty: 14 0RF ibuprofen 600 mg tablet 600 mg PO Q6H PRN (Reason: pain) Qty: 30 0RF hydrocodone-acetaminophen 5-325 mg tablet 1 tablet PO Q6H PRN (Reason: pain) Qty: 14 0RF gabapentin 300 mg capsule See Rx Instructions .ROUTE .COMPLEX Qty: 30 0RF Rx Instructions: 300 mg orally; received first dose in ED 10/05. Take 600mg total (300mg BID) on day 2 (10/06), then 900mg total (300mg TID) on subsequent days ibuprofen 600 mg tablet 600 mg PO Q6H PRN (Reason: pain) Qty: 14 0RF cephalexin 500 mg capsule 500 mg PO Q12H 7 Days Qty: 14 0RF methocarbamol 750 mg tablet 750 mg PO HS Qty: 10 0RF hydrocodone-acetaminophen 5-325 mg tablet 1 tablet PO Q8H PRN (Reason: pain) Qty: 7 0RF <HILARY Barba - Last Filed: 08/09/25 01:41> Follow-up/Referrals: Naseer,Shane, MD [Physician, Neurology] PHYSICIAN NOT ON STAFF,NONSTAFF [Primary Care Provider] <HILARY Barba - Last Filed: 08/09/25 01:41> Stand Alone Forms: Work/School Release IP <HILARY Barba - Last Filed: 08/09/25 01:41>
[2025-08-08] MEDS: HYDROcodone/acetaminophen (*CRX) 5-325 MG TABLET 1 TAB PO (20:17)
[2025-08-08] MEDS: KETOROLAC 30 MG/ML VIAL (*BKC) IM (20:18)
[2025-08-08 20:44] LABS: Add Urine Microscopic? YES; Appearance Urine Clear (Clear); Glucose Urine UA 3+ mg/dL (Negative); Leukocyte Esterase Ur Trace LEU/UL (Negative); Nitrate Urine Negative (Negative); Non Pathogenic Casts 0-2; Specific Grav Ur 1.021 (1.001-1.035)
[2025-08-08 21:45] VITALS: BP 180/92; PULSE 73; RESP 20; O2SAT 97
== END 2025-08-08 21:47 | disposition home or self-care (01) ==
DX: E11.40 Type 2 diabetes mellitus with diabetic neuropathy, unspecified (principal); I10 Essential (primary) hypertension; Z79.85 Long-term (current) use of injectable non-insulin antidiabetic drugs; Z79.4 Long term (current) use of insulin; Z79.899 Other long term (current) drug therapy
CPT/HCPCS: 81001; 87086; 96372; 99283; A9270; J1885